=== PATIENT | female | born 1995 | race Hispanic/Latino ===

== ENCOUNTER 2020-07-14 08:19 | Emergency (ER) | payer OTHER, SELFPAY ==
[2020-07-14] MEDS ORDERED: MAGNES/ALUMIN/SIMET 30ML UCUP ONE (08:54)
[2020-07-14] MEDS ORDERED: LIDOCAINE VISCOUS 2% SOLN 15 ML UDC ONE (08:55)
[2020-07-14 10:27] LABS: Absolute Lymphocytes (CBC) 2.4 K/uL (0.7-4.9); Basophils % 0.4 % (0-1.3); Lymphocytes % 22.6 % (15.3-44.8); MPV 8.9 fL (7.6-11.3); RBC Red Blood Cell Count 4.18 M/uL (3.86-4.86)
[2020-07-14 10:37] LABS: Bilirubin Total 0.5 mg/dL (0.2-1.0); Protein, Total 8.1 g/dL (6.4-8.2)
--- NOTE | 2020-07-14 11:00 | RAD REPORT ---
EXAM DESCRIPTION: CT - Abdomen Pelvis W Contrast - 07/14/2020 10:39 am CLINICAL HISTORY: Abdominal pain COMPARISON: none. TECHNIQUE: Computed axial tomography of the abdomen pelvis was obtained. 100 cc Isovue-300 was admin istered intravenously. Oral contrast was not requested which limits evaluation of bowel. All CT scans are performed using dose optimization technique as appropriate and may include automated exposure control or mA/KV adjustment according to patient size. FINDINGS: Small right pleural effusion. Fatty liver. Liver is mildly enlarged. The spleen, adrenals and kidneys appear unremarkable. The pancreas is normal size. The density is normal. Mild stranding adjacent to the pancreas. There is no evidence of diverticulitis. An IUD is present within the uterus. IMPRESSION: Hepatomegaly with fatty infiltration Mild stranding within the peripancreatic fat may represent mild pancreatitis
[2020-07-14] MEDS ORDERED: METOCLOPRAMIDE 10 MG/2mL INJ ONE (11:14)
[2020-07-14] MEDS ORDERED: DIPHENHYDRAMINE 50 MG/ML VIAL ONE (11:14)
--- NOTE | 2020-07-14 12:24 | EDPHYS ---
Physician Documentation [facility] Name: Andreina Gomez Age: 24 yrs Sex: Female : 1995 Arrival Date: 07/14/2020 Time: 08:26 Bed 5 Private MD: ED Physician Darrick Villafana HPI: 07/14 08:35 This 24 yrs old Female presents to ER via Unassigned with complaints of Chest ps1 Pain, Headache. 08:35 patient states that she does not have chest pain but epigastric pain as if she drank ps1 too much water and it was going to come up. Not nauseated but just feels full. No fever, chills, cough, or urinary symptoms. Sounds like indigestion. . 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 - Social history:: Smoking status: Patient denies any tobacco usage or history of. ROS: 08:37 Constitutional: Negative for fever, chills, and weight loss, Eyes: Negative for injury, ps1 pain, redness, and discharge, Cardiovascular: Negative for chest pain, palpitations, and edema, Respiratory: Negative for shortness of breath, cough, wheezing, and pleuritic chest pain, MS/Extremity: Negative for injury and deformity, Skin: Negative for injury, rash, and discoloration, Neuro: Negative for headache, weakness, numbness, tingling, and seizure. 08:37 Abdomen/GI: Positive for abdominal pain. Exam: 08:37 Constitutional: This is a well developed, well nourished patient who is awake, alert, ps1 and in no acute distress. Head/Face: Normocephalic, atraumatic. Eyes: Pupils equal round and reactive to light, extra-ocular motions intact. Lids and lashes normal. Conjunctiva and sclera are non-icteric and not injected. Cardiovascular: Regular rate and rhythm. No gallops, murmurs, or rubs. Normal PMI, no JVD. No pulse deficits. Respiratory: Lungs have equal breath sounds bilaterally, clear to auscultation and percussion. No rales, rhonchi or wheezes noted. No increased work of breathing, no retractions or nasal flaring. Abdomen/GI: Soft, non-tender, with normal bowel sounds. No distension or tympany. No guarding or rebound. No evidence of tenderness throughout. Skin: Warm, dry with normal turgor. Normal color with no rashes, no lesions, and no evidence of cellulitis. MS/ Extremity: Pulses equal, no cyanosis. Neurovascular intact. Full, normal range of motion. Neuro: Awake and alert, GCS 15, oriented to person, place, time, and situation. Cranial nerves II-XII grossly intact. Sensory grossly intact. Vital Signs: 08:35 BP 161 / 101; Pulse 78; Resp 18; Temp 98.8(O); Pulse Ox 99% on R/A; vg1 08:39 Weight 192.78 kg; Height 5 ft. 5 in. (165.10 cm); Pain 8/10; iw 10:50 BP 150 / 85; Pulse 65; Resp 18; Pulse Ox 99% on R/A; vg1 12:00 BP 146 / 81; Pulse 72; Resp 16; Pulse Ox 99% on R/A; vg1 08:39 Body Mass Index 70.72 (192.78 kg, 165.10 cm) iw MDM: 08:38 Patient medically screened. ps1 07/14 09:16 Order name: Influenza Screen (a \T\ B); Complete Time: 10:39 ps1 07/14 09:16 Order name: CBC with Diff; Complete Time: 10:32 ps1 07/14 09:16 Order name: CMP; Complete Time: 10:39 ps1 07/14 09:16 Order name: Lipase; Complete Time: 10:39 ps1 07/14 09:16 Order name: CT Abd/Pelvis - IV Contrast Only; Complete Time: 11:03 ps1 07/14 11:39 Order name: CREATININE WHOLE BLOOD; Complete Time: 12:13 EDMS Administered Medications: 08:46 Drug: GI Cocktail without - (Maalox Suspension 30 ml, Lidocaine Liquid 2 % 15 vg1 ml) Route: PO; 09:17 Follow up: Response: Pain is unchanged, physician notified vg1 11:12 Drug: Benadryl 50 mg Route: IVP; Site: right antecubital; vg1 12:18 Follow up: Response: No adverse reaction vg1 11:14 Drug: Reglan 10 mg Route: IVP; Site: right antecubital; vg1 12:18 Follow up: Response: Pain is decreased vg1 Disposition: 07/14/20 12:24 Discharged to Home. Impression: Epigastric pain, Headache. - Condition is Stable. - Discharge Instructions: Abdominal Pain, Adult, Migraine Headache. - Prescriptions for Bentyl 10 mg Oral Capsule - take 1 capsule by ORAL route every 6 hours As needed; 40 capsule. Carafate 1 gram Oral Tablet - take 1 tablet by ORAL route 4 times per day take on an empty stomach, beginning on waking and last dose at bedtime; 100 tablet. Zofran 4 mg Oral Tablet - take 1 tablet by ORAL route every 12 hours As needed; 20 tablet. - Medication Reconciliation Form, Thank You Letter, Antibiotic Education, Prescription Opioid Use form. - Follow up: Private Physician; When: As needed; Reason: Further diagnostic work-up. Follow up: Emergency Department; When: As needed; Reason: Fever > 102 F, Worsening of condition. - Problem is new. - Symptoms are unchanged. Signatures: Dispatcher [employer] EDYen Odell RN RN Darrick Villafana MD MD ps1 Claudia Villa RN RN vg1 Corrections: (The following items were deleted from the chart) 08:41 08:40 PMHx: None; [facility] 13:00 12:24 07/14/2020 12:24 Discharged to Home. Impression: Epigastric pain; Headache. vg1 Condition is Stable. Forms are Medication Reconciliation Form, Thank You Letter, Antibiotic Education, Prescription Opioid Use. Follow up: Private Physician; When: As needed; Reason: Further diagnostic work-up. Follow up: Emergency Department; When: As needed; Reason: Fever > 102 F, Worsening of condition. Problem is new. Symptoms are unchanged. ps1
--- NOTE | 2020-07-14 12:24 | ER ---
Nurse's Notes [facility] Name: Andreina Gomez Age: 24 yrs Sex: Female : 1995 Arrival Date: 07/14/2020 Time: 08:26 Bed 5 Private MD: Diagnosis: Epigastric pain;Headache Presentation: 07/14 08:38 Chief complaint: Patient states: upper abd pain, bloating, headache since last night, iw pain makes her SOB. Coronavirus screen: At this time, the client does not indicate any symptoms associated with coronavirus-19. Ebola Screen: Patient negative for fever greater than or equal to 101.5 degrees Fahrenheit, and additional compatible Ebola Virus Disease symptoms Patient denies exposure to infectious person. Patient denies travel to an Ebola-affected area in the 21 days before illness onset. No symptoms or risks identified at this time. Onset of symptoms was July 13, 2020. 08:38 Method Of Arrival: Ambulatory iw 08:38 Acuity: ARVIND 3 iw 08:39 Initial Sepsis Screen: Does the patient meet any 2 criteria? No. Patient's initial iw sepsis screen is negative. Does the patient have a suspected source of infection? No. Patient's initial sepsis screen is negative. Risk Assessment: Do you want to hurt yourself or someone else? Patient reports no desire to harm self or others. Triage Assessment: 12:59 Pain: Also complains of. 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 - Social history:: Smoking status: Patient denies any tobacco usage or history of. Screenin:40 Abuse screen: Denies threats or abuse. Nutritional screening: No deficits noted. vg1 Tuberculosis screening: No symptoms or risk factors identified. Fall Risk No fall in past 12 months (0 pts). No secondary diagnosis (0 pts). No IV (0 pts). Ambulatory Aid- None/Bed Rest/Nurse Assist (0 pts). Gait- Normal/Bed Rest/Wheelchair (0 pts) Mental Status- Oriented to own ability (0 pts). Total Saavedra Fall Scale indicates No Risk (0-24 pts). Assessment: 08:40 General: Appears in no apparent distress. comfortable, Behavior is calm, cooperative. vg1 General: Appears obese. Pain: Complains of pain in epigastric area Pain does not radiate. Pain currently is 8 out of 10 on a pain scale. Pain began 1 day ago. Neuro: Level of Consciousness is awake, alert, obeys commands, confused. Cardiovascular: Patient's skin is warm and dry. Respiratory: Airway is patent Respiratory effort is even, unlabored, Respiratory pattern is regular, symmetrical. GI: Bowel sounds present X 4 quads. Abd is soft and non tender Reports Patient currently denies diarrhea, nausea, vomiting, last BM was yesterday 07/13/20, and was green and soft. : No signs and/or symptoms were reported regarding the genitourinary system. EENT: No signs and/or symptoms were reported regarding the EENT system. Derm: Skin is pink, warm \T\ dry. Musculoskeletal: Range of motion: intact in all extremities. 08:54 Reassessment: Patient up for d/c, pending lab results. vg1 09:17 Reassessment: Patient reports pain is still the same. Stated when laying down 'the pain vg1 is not so bad, until I sit up'. 10:20 Reassessment: Patient appears in no apparent distress at this time. No changes from vg1 previously documented assessment. Patient and/or family updated on plan of care and expected duration. Pain level reassessed. Patient is alert, oriented x 3, equal unlabored respirations, skin warm/dry/pink. 10:54 Reassessment: Patient reports h/a, provider notified. Rates pain 9/10. States that abd vg1 pain is now 5/10. 12:00 Reassessment: Patient appears in no apparent distress at this time. Patient and/or vg1 family updated on plan of care and expected duration. Pain level reassessed. Patient is alert, oriented x 3, equal unlabored respirations, skin warm/dry/pink. Vital Signs: 08:35 BP 161 / 101; Pulse 78; Resp 18; Temp 98.8(O); Pulse Ox 99% on R/A; vg1 08:39 Weight 192.78 kg; Height 5 ft. 5 in. (165.10 cm); Pain 8/10; iw 10:50 BP 150 / 85; Pulse 65; Resp 18; Pulse Ox 99% on R/A; vg1 12:00 BP 146 / 81; Pulse 72; Resp 16; Pulse Ox 99% on R/A; vg1 08:39 Body Mass Index 70.72 (192.78 kg, 165.10 cm) iw ED Course: 08:26 Patient arrived in ED. as 08:30 Darrick Villafana MD is Attending Physician. ps1 08:32 Claudia Villa, RN is Primary Nurse. vg1 08:39 Triage completed. iw 08:40 Patient has correct armband on for positive identification. Bed in low position. Call vg1 light in reach. Side rails up X 1. Pulse ox on. NIBP on. 08:55 Patient maintains SpO2 saturation greater than 95% on room air. vg1 09:43 CT Abd/Pelvis - IV Contrast Only In Process Unspecified. EDMS 09:45 Missed attempt(s): 22 gauge in right forearm. done by Claudia SAINI. Bleeding controlled, sv band aid applied, catheter tip intact. 09:54 Influenza Screen (a \T\ B) Sent. vg1 10:00 Missed attempt(s): 20 gauge in left antecubital area. Bleeding controlled, band aid sv applied, catheter tip intact. 10:10 Missed attempt(s): 20 gauge in right antecubital area. done by Dr Villafana . sv 10:15 Missed attempt(s): 20 gauge in right antecubital area. done by Dr Villafana. sv 10:25 Missed attempt(s): 18 gauge in right antecubital area. done by Dr Villafana. sv 10:30 Accessed peripheral vein via ultrasound, utilizing dynamic ultrasound technique using sv 18G Nexia IV Catheter per hospital protocol. Clean \T\ dry. Dressing intact. Good blood return. Flushes easily. R AC. 10:[address] via stretcher. vg1 10:44 Patient moved back from DC. vg1 12:52 ED physician to see patient. vg1 12:59 IV discontinued, intact, bleeding controlled, No redness/swelling at site. Pressure vg1 dressing applied. 12:59 No provider procedures requiring assistance completed. vg1 Administered Medications: 08:46 Drug: GI Cocktail without - (Maalox Suspension 30 ml, Lidocaine Liquid 2 % 15 vg1 ml) Route: PO; 09:17 Follow up: Response: Pain is unchanged, physician notified vg1 11:12 Drug: Benadryl 50 mg Route: IVP; Site: right antecubital; vg1 12:18 Follow up: Response: No adverse reaction vg1 11:14 Drug: Reglan 10 mg Route: IVP; Site: right antecubital; vg1 12:18 Follow up: Response: Pain is decreased vg1 Outcome: 12:24 Discharge ordered by . ps1 12:59 Discharged to home ambulatory. vg1 12:59 Condition: good 12:59 Discharge instructions given to patient, Instructed on discharge instructions, follow up and referral plans. medication usage, Demonstrated understanding of instructions, follow-up care, medications, Prescriptions given X 3. 13:00 Patient left the ED. vg1 Signatures: Dispatcher [employer] EDMS Yi Ramires RN RN sv Martinez, Amelia as Williams, Irene, RN RN iw Darrick Villafana MD MD ps1 Garcia, Victoria, RN RN vg1 Corrections: (The following items were deleted from the chart) 08:41 08:40 PMHx: None; dani
[2020-07-17 08:23] VITALS: TEMP 98.8; O2SAT 99
[2020-07-17 08:26] VITALS: BP 146/81
== END 2020-07-14 13:00 | disposition home or self-care (01) ==
LOC: ER 08:19
DX: R51.9 Headache, unspecified (principal)
CPT/HCPCS: 36415; 74177; 80053; 82565; 83690; 85025; 87804; 96374; 96375; 99285; J1200; J2765; Q9967

== ENCOUNTER 2020-07-19 15:25 | Emergency (ER) | payer OTHER, SELFPAY ==
--- OUTSIDE RECORDS SUMMARY | 2020-07-19 15:28 | XMS REPORT | Summary of Care ---
:1995 Author Organization [facility] Address [address] [place] [address] Care Team Providers Name Role Phone Kelli Dixon [facility] Primary Care Provider Reason for Visit Reason Comments Abnormal Lab Encounter Details Date Type Department Care Team Description [facility] [address] [facility] [place] [address] [phone] [place], [place] [address] [phone] Allergies No Known Allergiesdocumented as of this encounter (statuses as of 06/05/2020) Medications Medication Sig Dispensed Refills Start Date End Date Status PARoxetine (PAXIL) 10 Take 10 mg by 0 Active mg tablet mouth daily. documented as of this encounter (statuses as of 06/05/2020) Active Problems Problem Noted Date Well woman exam 06/03/2020 Other general counseling and advice for contraceptive management 06/03/2020 Morbid obesity 06/03/2020 Other depression 06/03/2020 IUD (intrauterine device) in place 06/03/2020 documented as of this encounter (statuses as of 06/05/2020) Social History Tobacco Use Types Packs/Day Years Used Date Never Smoker Smokeless Tobacco: Never Used Alcohol Use Drinks/Week oz/Week Comments Not Currently Sex Assigned at Date Recorded Not on file COVID-19 Exposure Response Date Recorded In the last month, have you been in contact with No / Unsure 06/03/2020 1:00 PM CARDIAC EXERCISE PHYSIOLOGIST someone who was confirmed or suspected to have Coronavirus / COVID-19? documented as of this encounter Last Filed Vital Signs Not on filedocumented in this encounter Miscellaneous Notes Telephone Encounter - Anne-Marie George LVN - 06/05/2020 10:59 AM CSTAndreina Gomez is a 24 year old female Patient informed of results and recommendations, verbalized understanding. IAC EXERCISE PHYSIOLOGIST Telephone Encounter - Kelli Dixon [facility]NP - 06/04/2020 11:44 AM CARDIAC EXERCISE PHYSIOLOGIST Please notify the patient her A1c is elevated. She is considered diabetic, please advise her on seeking PCP for continued mgmt. Please advise her on heart health diet, weight loss management SANDRA Reynolds 06/04/2020 11:45 AM IAC EXERCISE PHYSIOLOGIST documented in this encounter Plan of Treatment Date Type Specialty Care Team Description 06/12/2020 Office Visit OB Satellites Becca Dixon [facility]NP [address] [phone] Health Maintenance Due Date Last Done Comments HPV VACCINES (1 - 2-dose series) 08/03/2020 Postponed from 2004 (Alternative Roland delines) INFLUENZA VACCINE (#1) 2021 Postponed from 04/01/2020 (Refused) DTaP,Tdap,and Td Vaccines (1 - 06/03/2021 P ostponed from 2012 Tdap) (Alternative Roland delines) Depression Screening 06/03/2021 06/03/2020 VARICELLA VACCINES (1 of 2 - 06/03/2021 Pos tponed from 1994 2-dose childhood series) (Altern ative Guidelines) PAP SMEAR 06/03/2023 06/03/2020 PNEUMOCOCCAL 0-64 YEARS COMBINED Aged Out No longer eligible based on SERIES patient's age to complete this topic documented as of this encounter Results Not on filedocumented in this encounter Insurance Payer Benefit Plan Subscriber ID Effective Phone Address Typ e / Group Dates [facility] [id number] 2020-Pres [phone] Medicaid WOMEN ent [address] [place] [address] documented as of this encounter
--- OUTSIDE RECORDS SUMMARY | 2020-07-19 15:28 | XMS REPORT | Summary of Care ---
:1995 Author Organization [facility] Address [address] [place] [address] Care Team Providers Name Role Phone Kelli Dixon [facility] Primary Care Provider [phone] Reason for Visit Reason Comments Abnormal Lab Encounter Details Date Type Department Care Team Description 06/04/[address] [facility] [address] [facility] [place] [address] [phone] [place], [place] [address] [phone] Allergies No Known Allergiesdocumented as of this encounter (statuses as of 06/04/2020) Medications Medication Sig Dispensed Refills Start Date End Date Status PARoxetine (PAXIL) 10 Take 10 mg by 0 Active mg tablet mouth daily. documented as of this encounter (statuses as of 06/04/2020) Active Problems Problem Noted Date Well woman exam 06/03/2020 Other general counseling and advice for contraceptive management 06/03/2020 Morbid obesity 06/03/2020 Other depression 06/03/2020 IUD (intrauterine device) in place 06/03/2020 documented as of this encounter (statuses as of 06/04/2020) Social History Tobacco Use Types Packs/Day Years Used Date Never Smoker Smokeless Tobacco: Never Used Alcohol Use Drinks/Week oz/Week Comments Not Currently Sex Assigned at Date Recorded Not on file COVID-19 Exposure Response Date Recorded In the last month, have you been in contact with No / Unsure 06/03/2020 1:00 PM METEOROLOGIST LIAISON someone who was confirmed or suspected to have Coronavirus / COVID-19? documented as of this encounter Last Filed Vital Signs Not on filedocumented in this encounter Miscellaneous Notes Telephone Encounter - Kelli Dixon [facility] - 06/04/2020 11:44 AM METEOROLOGIST LIAISON Please notify the patient her A1c is elevated. She is considered diabetic, please advise her on seeking PCP for continued mgmt. Please advise her on heart health diet, weight loss management SANDRA Reynolds 06/04/2020 11:45 AM OROLOGIST LIAISON documented in this encounter Plan of Treatment Date Type Specialty Care Team Description 06/12/2020 Office Visit OB Satellites Becca Dixon [facility] [address] [place], [place] [address] [phone] Health Maintenance Due Date Last Done Comments [...] Address Typ e / Group Dates [facility] [id number] 2020-Pres [phone] Medicaid WOMEN ent [address] [place] [address] documented as of this encounter
--- OUTSIDE RECORDS SUMMARY | 2020-07-19 15:28 | XMS REPORT | Summary of Care ---
:1995 Author Organization [facility] Address [address] [place] [address] Care Team Providers Name Role Phone Kelli Dixon MANUEL Primary Care Provider [phone] Reason for Visit Reason Comments Well Woman Exam Encounter Details Date Type Department Care Team Description 06/03/2020 Office Visit [facility]- Kleli Dixon Ot er general counseling and advice for contraceptive management (Primary Dx); SANDRA Greene IUD (intrauterine device) in place; [address] [facility] [address] Well woman exam; Street MARTHA A Vaginal discharge; [place], [place] [address] Morbid obesity; [address] Other depression; [phone] Family hi story of diabetes mellitus; Other iron defi ciency anemia; Screen for STD (sexually transmitted disease) Allergies No Known Allergiesdocumented as of this encounter (statuses as of 06/03/2020) Medications Medication Sig Dispensed Refills Start Date End Date Status PARoxetine (PAXIL) 10 Take 10 mg by 0 Active mg tablet mouth daily. documented as of this encounter (statuses as of 06/03/2020) Active Problems Problem Noted Date Well woman exam 06/03/2020 Other general counseling and advice for contraceptive management 06/03/2020 Morbid obesity 06/03/2020 Other depression 06/03/2020 IUD (intrauterine device) in place 06/03/2020 documented as of this encounter (statuses as of 06/03/2020) Social History Tobacco Use Types Packs/Day Years Used Date Never Smoker Smokeless Tobacco: Never Used Alcohol Use Drinks/Week oz/Week Comments Not Currently Sex Assigned at Date Recorded Not on file COVID-19 Exposure Response Date Recorded In the last month, have you been in contact with No / Unsure 06/03/2020 1:00 PM SEVERITY OF ILLNESS COORDINATOR someone who was confirmed or suspected to have Coronavirus / COVID-19? documented as of this encounter Last Filed Vital Signs Vital Sign Reading Time Taken Comments Blood Pressure 117/80 06/03/2020 1:00 PM SEVERITY OF ILLNESS COORDINATOR Pulse 89 06/03/2020 1:00 PM SEVERITY OF ILLNESS COORDINATOR Temperature 36.2 C (97.1 F) 06/03/2020 1:00 PM SEVERITY OF ILLNESS COORDINATOR Respiratory Rate 16 06/03/2020 1:00 PM SEVERITY OF ILLNESS COORDINATOR Oxygen Saturation - - Inhaled Oxygen Concentration - - Weight 195.2 kg (430 lb 4.8 oz) 06/03/2020 1:00 PM SEVERITY OF ILLNESS COORDINATOR Height 165.1 cm (5' 5") 06/03/2020 1:00 PM SEVERITY OF ILLNESS COORDINATOR Body Mass Index 71.61 06/03/2020 1:00 PM SEVERITY OF ILLNESS COORDINATOR documented in this encounter Progress Notes Kelli Dixon, WHCNP - 06/03/2020 12:45 PM CST Chief complaint: Chief Complaint Patient presents with Well Woman Exam HPI: the patient is here today for WWE and contraceptive mangaement. She reports she is doing well for the most part but does however report vaginal discharge with odor, and irregular menses for the past 1 year. She denies using anything otc, and declines any new sexual partners. She does however agree to STI testing today. She reports IUD in place for control and reports it has been in place for the past 8 years. She reports she desires removal and placement of a different device,one with hormones to possible help regulate her menses a little better. She also reports history of depression and reports that she is currently on meds that was prescribed to her while she was still in [place]. She reports that she feels as though the meds are not effective but denies symptoms of harming herself and others. Pt (denies) current or past physical, sexual or emotional abuse. Histories OB History Para Term AB Living 1 1 1 1 SAB TAB Ectopic Multiple Live Births 1 # Outcome Date GA Lbr Beny/2nd Weight Sex Delivery Anes PTL Lv 1 Term 07/22/12 [id number] 7 lb 14 oz (3.572 kg) F CS-Unspec KACI Past Medical History: Diagnosis Date Anemia 2013 not on meds Anxiety 2019 Pt on paxil Asthma 2010 no recent asthma attacks per pt report Depression 2019 pt on paxil Sleep apnea 2019 pt has sleep apnea machine Family History Problem Relation Age of Onset Depression Mother Diabetes Mother Hypertension Mother High cholesterol Mother Depression Father Diabetes Father High cholesterol Father Hypertension Father Family Status Relation Name Status Mo Alive Fa Alive Past Surgical History: Procedure Laterality Date SECTION 2011 x1 Social History Socioeconomic History Marital status: Single Spouse name: Not on file Number of children: Not on file Years of education: Not on file Highest education level: Not on file Occupational History Not on file Social Needs Financial resource strain: Not on file Food insecurity Worry: Not on file Inability: Not on file Transportation needs Medical: Not on file Non-medical: Not on file Tobacco Use Smoking status: Never Smoker Smokeless tobacco: Never Used Substance and Sexual Activity Alcohol use: Not Currently Drug use: Not Currently Sexual activity: Yes Partners: Male control/protection: I.U.D. Comment: last intercourse: 05/23/2020 Lifestyle Physical activity Days per week: Not on file Minutes per session: Not on file Stress: Not on file Relationships Social connections Talks on phone: Not on file Gets together: Not on file Attends mosque service: Not on file Active member of club or organization: Not on file Attends meetings of clubs or organizations: Not on file Relationship status: Not on file Intimate partner violence Fear of current or ex partner: Not on file Emotionally abused: Not on file Physically abused: Not on file Forced sexual activity: Not on file Other Topics Concern Not on file Social History Narrative Patient feels safe at home. Social History Substance and Sexual Activity Sexual Activity Yes Partners: Male control/protection: I.U.D. Comment: last intercourse: 05/23/2020 Labs Labs are pending. Radiology No new radiology. Allergies Andreina has No Known Allergies. Medications Andreina has a current medication list which includes the following prescription(s): paroxetine. Review of Systems Constitutional: Negative. HENT: Negative. Eyes: Negative. Respiratory: Negative. Breasts: Negative. Cardiovascular: Negative. Gastrointestinal: Negative. Genitourinary: Positive for vaginal discharge and menstrual problem. Musculoskeletal: Negative. Skin: Negative. Neurological: Negative. Psychiatric/Behavioral: Negative. Endocrine: Endocrine negative BP 117/80 (BP Location: Right arm, Patient Position: Sitting, BP CUFF SIZE: Thigh cuff) | Pulse 89| Temp 36.2 C (97.1 F) (Oral) | Resp 16 | Ht 5' 5" (1.651 m) | Wt 430 lb 4.8 oz (195.2 kg) |LMP 05/24/2020 (Approximate) | BMI 71.61 kg/m Pregravid BMI: Could not be calculated Physical Exam Vitals reviewed. Constitutional: She is oriented to person, place, and time. She appears well- developed and well-nourished. Her body habitus is normal. Neck: No tenderness and no mass. No thyroid nodules and no thyromegaly palpated. No neck adenopathy. Cardiovascular: Regular rate and rhythm. No gallop, no friction rub and no murmur auscultated. No peripheral edema present. Pulmonary/Chest: Breath sounds clear to auscultation. Normal inspiratory effort. Abdominal: Abdomen is soft. No mass palpated. No tenderness present. There is no hepatosplenomegaly,splenomegaly or hepatomegaly. There is no rigidity. No hernia palpated or inspected. Neuro/Psychiatric: She has a normal mood and affect. She is oriented to person, place, and time. Skin: No lesion, no rash and no ulceration present. Lymphadenopathy: No neck adenopathy present. No axillary adenopathy present. No inguinal adenopathy present. Breast: Right breast exhibits no mass, no nipple discharge and no tenderness. Left breast exhibits no mass, no nipple discharge and no tenderness. Breasts are symmetrical. Normal left breast and normalright breast Rectal: Rectal exam with normal anal tone. No mass, no external hemorrhoid and no internal hemorrhoid palpated or inspected. External genitalia: Normal external genitalia appropriate for age. Normal hair distribution. No labial lesion. Urethral meatus: Normal urethral meatus size, location and no lesion. No prolapse present. Normal urethral meatus Urethra: Normal urethra. No urethral tenderness, no mass and no urethral scarring palpated. Bladder: Bladder has no fullness, no mass palpated and no tenderness. Normal bladder Vagina:No lesion inspected. Normal estrogen effect. Normal support. Vaginal discharge found. No lesions in the vagina. Scant discharge noted, scant blood noted Cervix: Normal cervix. No lesion. No tenderness and no discharge present. Uterus: Uterus is normal size, normal contour, normal position and non-tender. Normal uterus Adnexa: Right adnexa without tenderness, ovary enlargement or mass. Left adnexa without tenderness, ovary enlargement or mass. Normal left adnexa and normal right adnexa Anus/perineum: Normal perineum and normal anus. Assessment/Plan Return to clinic in 1 weeks. for IUD removal and insertion Return to clinic in 1 year for WWE or sooner as needed Rubella/VZV: luca dept BMI: 71 Td: pending Pap Smear: today Gardasil: pending Mammogram/Guaiac/Colonoscopy :na Other general counseling and advice for contraceptive management (primary encounter diagnosis) IUD (intrauterine device) in place Comment: reports in place, unable to visualize iud strings on todays visit Plan: return in 1 week Well woman exam Comment: routine Plan: PAP Smear-Liquid Based, PAP Smear-Liquid Based Vaginal discharge Comment: reports Plan: GC & CHLAMYDIA AMPLIFIED ASSAY, TRICHOMONAS AMPLIFIED ASSAY, GALV ONLY - VAGINAL PATHOGENS BY NUCLEIC ACID TESTING, GC & CHLAMYDIA AMPLIFIED ASSAY, TRICHOMONAS AMPLIFIED ASSAY Morbid obesity Comment: see bmui Plan: BMI discussed, appropriate weight gain, sensible diet, and exercise, increased fiber and waterintake and protein low in fat. Encouraged exercise for 30 min everyday; begin regimen with caution to prevent injury. Encouraged to decrease BMI to <25. Educated on how obesity and smoking can affect future and health. Educated on the effects of chronic health problems, tobacco use, and mental health on future pregnancies and/or skilled nursing health. Other depression Comment: reports on meds Plan: resource list provided Depression screen positive. -Follow up with provider scheduled provided with resource list Family history of diabetes mellitus Comment: reports desires labs Plan: GLYCOSYLATED HEMOGLOBIN (A1C), LIPID PANEL (45168)(TOTAL CHOLESTEROL, TRIGLYCERIDES, HDL), GLYCOSYLATED HEMOGLOBIN (A1C), LIPID PANEL (55776)(TOTAL CHOLESTEROL, TRIGLYCERIDES, HDL) Other iron deficiency anemia Comment: reports states she takes iron when she remembers Plan: CBC WITH DIFF Screen for STD (sexually transmitted disease) Comment: as ordered Plan: HIV 1/2 AG-AB WITH REFLEX This visit did not involve counseling and coordination that comprised more than 50% of the visit time. SANDRA Reynolds 06/03/2020 2:33 PM RITY OF ILLNESS COORDINATOR Brenton Liu, PARVEEN - 06/03/2020 12:45 PM CST24 year old presents to the clinic for wwe. 1) Previous BCM: IUD paragard 2) Desired BCM: Satisfied with paragard 3) LMP: 05/24/2020 4) Last [place]: 05/23/2020 5) Last Pap: 2016 in [place] Results: negative 6) Tdap: N/A 7) Gardasil: N/A 8) C/O: Patient having frequent urination, foul smelling vaginal discharge, and heavy menses. 9) Patient denies history of physical, emotional, or sexual abuse. Patient states that she currently feels safe at home. BRENTON LIU RN 06/03/2020 1:14 PM RITY OF ILLNESS COORDINATOR documented in this encounter Plan of Treatment Date Type Specialty Care Team Description 06/12/2020 Office Visit [facility] Becca Dixon WHCNP [address] [place], [place] [address] [phone] Name Type Priority Associated Diagnoses Date/Ti me PAP Smear-Liquid Based LAB Routine Well woman exam 2:55 PM SEVERITY OF ILLNESS COORDINATOR GC & CHLAMYDIA AMPLIFIED LAB Routine Vaginal discharg e 06/03/2020 2:55 PM ASSAY SEVERITY OF ILLNESS COORDINATOR TRICHOMONAS AMPLIFIED LAB Routine Vaginal discharge 1 08/03/2019 2:55 PM ASSAY SEVERITY OF ILLNESS COORDINATOR GALV ONLY - VAGINAL LAB Routine Vaginal discharge 09/2019 2:54 PM PATHOGENS BY NUCLEIC ACID CS T TESTING GLYCOSYLATED HEMOGLOBIN LAB Routine Family history of 06/03/2020 2:54 PM (A1C) diabetes mellitus SEVERITY OF ILLNESS COORDINATOR CBC WITH DIFF LAB Routine Other iron deficiency 06/03 2:54 PM anemia SEVERITY OF ILLNESS COORDINATOR HIV 1/2 AG-AB WITH REFLEX LAB Routine Screen for STD (sexually 06/03/2020 2:54 PM transmitted disease) SEVERITY OF ILLNESS COORDINATOR Name Type Priority Associated Diagnoses Order S chedule PAP Smear-Liquid Based LAB Routine Well woman exam Ex pected: 06/03/2020, Expires: 2020 GC & CHLAMYDIA AMPLIFIED LAB Routine Vaginal discharg e Expected: 06/03/2020, ASSAY Expires: 2020 TRICHOMONAS AMPLIFIED LAB Routine Vaginal discharge E xpected: 06/03/2020, ASSAY Expires: 2020 GLYCOSYLATED HEMOGLOBIN LAB Routine Family history of Expected: 06/03/2020, (A1C) diabetes mellitus Expires: 08/03/2020 LIPID PANEL (22001)(TOTAL LAB Routine Family history of Expected: 06/10/2020, CHOLESTEROL, diabetes mellitus Expires: 1 08/03/2020 TRIGLYCERIDES, HDL) Health Maintenance Due Date Last Done Comments [...] Results Not on filedocumented in this encounter Visit Diagnoses Diagnosis Other general counseling and advice for contraceptive management - Primary IUD (intrauterine device) in place Presence of intrauterine contraceptive d evice Well woman exam Routine general medical examination at a health care facility Vaginal discharge Leukorrhea, not specified as infective Morbid obesity Other depression Family history of diabetes mellitus Other iron deficiency anemia Screen for STD (sexually transmitted dis ease) Screening examination for venereal disea se documented in this encounter Insurance Payer Benefit Plan Subscriber ID Effective Phone Address Typ e / Group Dates [facility] [id number] 2020-Pres [phone] Medicaid WOMEN ent [address] [place] [id number] 1 documented as of this encounter
--- OUTSIDE RECORDS SUMMARY | 2020-07-19 15:28 | XMS REPORT | Summary of Care ---
:1995 Author Organization [facility] Address [address] [place] [address] Care Team Providers Name Role Phone Kelli Dixon MANUEL Primary Care Provider [phone] Reason for Visit Reason Comments Well Woman Exam Encounter Details Date Type Department Care Team Description 06/03/2020 Office Visit [facility]- Kelli Dixon Ot er general counseling and advice for contraceptive management (Primary Dx); SANDRA Greene IUD (intrauterine device) in place; [address] [place] [address] [facility] [address] Well woman exam; Street MARTHA [address] Vaginal discharge; [place], [place] [address] Morbid obesity; [address] Other depression; [phone] Family hi story of diabetes mellitus; Other [...] with No / Unsure 06/03/2020 1:00 PM MORTGAGE LOAN FUNDER someone who was confirmed or suspected to have Coronavirus / COVID-19? documented as of this encounter Last Filed Vital Signs Vital Sign Reading Time Taken Comments Blood Pressure 117/80 06/03/2020 1:00 PM MORTGAGE LOAN FUNDER Pulse 89 06/03/2020 1:00 PM MORTGAGE LOAN FUNDER Temperature 36.2 C (97.1 F) 06/03/2020 1:00 PM MORTGAGE LOAN FUNDER Respiratory Rate 16 06/03/2020 1:00 PM MORTGAGE LOAN FUNDER Oxygen Saturation - - Inhaled Oxygen Concentration - - Weight 195.2 kg (430 lb 4.8 oz) 06/03/2020 1:00 PM MORTGAGE LOAN FUNDER Height 165.1 cm (5' 5") 06/03/2020 1:00 PM MORTGAGE LOAN FUNDER Body Mass Index 71.61 06/03/2020 1:00 PM MORTGAGE LOAN FUNDER documented in this encounter Progress Notes Kelli [...] to her while she was still in [place]. She reports that she feels as though [...] file Gets together: Not on file Attends buddhist service: Not on file Active member of [...] and mental health on future pregnancies and/or prison health. Other depression Comment: reports on meds Plan: resource list provided Depression screen positive. -Follow up with provider scheduled provided with resource list Family history of diabetes mellitus Comment: reports desires labs Plan: GLYCOSYLATED HEMOGLOBIN (A1C), LIPID PANEL (60062)(TOTAL CHOLESTEROL, TRIGLYCERIDES, HDL), GLYCOSYLATED HEMOGLOBIN (A1C), LIPID PANEL (50640)(TOTAL CHOLESTEROL, TRIGLYCERIDES, HDL) Other iron deficiency anemia Comment: reports states she takes iron when she remembers Plan: CBC WITH DIFF Screen for STD (sexually transmitted disease) Comment: as ordered Plan: HIV 1/2 AG-AB WITH REFLEX This visit did not involve counseling and coordination that comprised more than 50% of the visit time. SANDRA Reynolds 06/03/2020 2:33 PM GAGE LOAN FUNDER Brenton Liu, PARVEEN - 06/03/2020 12:45 PM CST24 year old presents to the clinic for wwe. 1) Previous BCM: IUD paragard 2) Desired BCM: Satisfied with paragard 3) LMP: 05/24/2020 4) Last [place]: 05/23/2020 5) Last Pap: 2016 in [place] Results: negative 6) Tdap: N/A 7) Gardasil: N/A 8) C/O: Patient having frequent urination, foul smelling vaginal discharge, and heavy menses. 9) Patient denies history of physical, emotional, or sexual abuse. Patient states that she currently feels safe at home. BRENTON LIU RN 06/03/2020 1:14 PM GAGE LOAN FUNDER documented in this encounter Plan of Treatment Date Type Specialty Care Team Description 06/12/2020 Office Visit [facility] Becca Dixon WHCNP [address] [place], [place] [address] [phone] Name Type Priority Associated Diagnoses Date/Ti me PAP Smear-Liquid Based LAB Routine Well woman exam 2:55 PM MORTGAGE LOAN FUNDER GC & CHLAMYDIA AMPLIFIED LAB Routine Vaginal discharg e 06/03/2020 2:55 PM ASSAY MORTGAGE LOAN FUNDER TRICHOMONAS AMPLIFIED LAB Routine Vaginal discharge 1 08/03/2019 2:55 PM ASSAY MORTGAGE LOAN FUNDER GALV ONLY - VAGINAL LAB Routine Vaginal discharge 09/2019 2:54 PM PATHOGENS BY NUCLEIC ACID CS T TESTING GLYCOSYLATED HEMOGLOBIN LAB Routine Family history of 06/03/2020 2:54 PM (A1C) diabetes mellitus MORTGAGE LOAN FUNDER CBC WITH DIFF LAB Routine Other iron deficiency 06/03 2:54 PM anemia MORTGAGE LOAN FUNDER HIV 1/2 AG-AB WITH REFLEX LAB Routine Screen for STD (sexually 06/03/2020 2:54 PM transmitted disease) MORTGAGE LOAN FUNDER Name Type Priority Associated Diagnoses Order S chedule PAP Smear-Liquid Based LAB Routine Well woman exam Ex pected: 06/03/2020, Expires: 2020 GC & CHLAMYDIA AMPLIFIED LAB Routine Vaginal discharg e Expected: 06/03/2020, ASSAY Expires: 2020 TRICHOMONAS AMPLIFIED LAB Routine Vaginal discharge E xpected: 06/03/2020, ASSAY Expires: 2020 GLYCOSYLATED HEMOGLOBIN LAB Routine Family history of Expected: 06/03/2020, (A1C) diabetes mellitus Expires: 08/03/2020 LIPID PANEL (14890)(TOTAL LAB Routine Family history of Expected: 06/10/2020, [...] Address Typ e / Group Dates [facility] [id number] 2020-Pres [phone] [address] Medicaid WOMEN ent [address] [place] [id number] 1 documented as of this encounter
--- OUTSIDE RECORDS SUMMARY | 2020-07-19 15:28 | XMS REPORT | Continuity of Care Document ---
:1995 Author Organization [facility] t Address [address] [place] [address] Dr. Farrell. [address] [place] [address] Care Team Providers Name Role Phone Anayeli Anna Attending Clinician Problems This patient has no known problems. Allergies, Adverse Reactions, Alerts This patient has no known allergies or adverse reactions. Medications This patient has no known medications. Procedures This patient has no known procedures. Encounters Start End Encounter Admission Attending Care Care Encounter Source Date/Time Date/Time Type Type Clinicians Facility Department ID 2020-06-04 2020-06-[address] [facility] [id number] 00:00:00 00:00:00 Kelli Guadalupe REGISTERED NURSE SUPERVISOR [id number] [facility] [id number] MATERNAL [id number] & CHILD [address] [place] [address] Results This patient has no known results.
[2020-07-19] MEDS ORDERED: NA CHLORIDE 0.9% 1,000 ML ONE (16:00)
[2020-07-19] MEDS ORDERED: MORPHINE 4 MG/ML SYR ONE ×2 (16:00→17:19)
[2020-07-19] MEDS ORDERED: ONDANSETRON 4 MG/2 ML VIAL ONE (16:00)
[2020-07-19 16:14] LABS: Absolute Lymphocytes (CBC) 1.5 K/uL (0.7-4.9); Basophils % 0.5 % (0-1.3); Hematocrit 32.7 % (36.0-45.0); Lymphocytes % 13.5 % (15.3-44.8); MPV 8.7 fL (7.6-11.3); RBC Red Blood Cell Count 4.04 M/uL (3.86-4.86)
[2020-07-19 16:28] LABS: Bilirubin Direct 0.2 mg/dL (0-0.2); Bilirubin Total 0.4 mg/dL (0.2-1.0); Potassium 4.1 mmol/L (3.5-5.1); Protein, Total 7.9 g/dL (6.4-8.2)
[2020-07-19 17:53] LABS: Urine Blood 3+ (NEG); Urine Glucose NEGATIVE (NEG); Urine Protein NEGATIVE (NEG); Urine Specific Gravity 1.015 (1.005-1.030); Urine pH 6.5 (5.0-7.0)
--- NOTE | 2020-07-19 18:26 | RAD REPORT ---
EXAM DESCRIPTION: CT - Abdomen Pelvis W Contrast - 07/19/2020 5:52 pm CLINICAL HISTORY: ABD PAIN COMPARISON: Abdomen Pelvis W Contrast dated 07/14/2020 TECHNIQUE: Biphasic, helical CT imaging of the abdomen and pelvis was performed following 100 ml non -ionic IV contrast. No oral contrast. All CT scans are performed using dose optimization technique as appropriate and may include automated exposure control or mA/KV adjustment according to patient size. FINDINGS: Small bilateral pleural effusions are present. Minimal pericardial effusion present around a normal sized heart. Fatty infiltration pattern is seen throughout the enlarged liver. Liver measures 29 cm in craniocauda l dimension. No focal liver lesion identified. No splenomegaly or focal splenic finding. No pancreati c or peripancreatic acute process. Approximately 12 mm size density in the gallbladder near the cysti c duct is identified suspected to be gallstone. Additional stones can be occult. No wall thickening o r pericholecystic fluid seen. No biliary tree dilatation. Symmetric renal function is seen with no hydronephrosis or suspicious renal mass. No pyelonephritis o r acute parenchymal process. No bladder abnormalities. No adrenal abnormalities. No ovarian abnormality identified. Overall uterine contour has enlarged. In the fundal region there i s now a 5 centimeter diameter low-density mass effect not seen July 14. IUD is in place, shifted slightly in position since July 14. This is suspicious for hemorrhage possibly from IUD injury of myometrium. This low-density mass is centrally positioned within an enlarged fundal portion of the u terus. No fluid or blood in the pelvic floor. No dilated bowel loops or bowel wall thickening. No free air or pneumatosis. No hernia, mass or bul ky lymphadenopathy. No suspicious bony findings. IMPRESSION: Uterus has enlarged since July 14 with a 5 centimeter low-density mass significantly enlarging of the fundus. This is suspected to be a hematometrocolpos presentation possibly with hemo rrhage triggered by IUD injury to the myometrium. No gross evidence of myometrial perforation by the IUD which has shifted slightly since 2013. No exte nsion of blood or fluid in the peritoneal cavity. No acute or GI abnormality.
--- NOTE | 2020-07-19 18:43 | EDPHYS ---
Physician Documentation [facility] Name: Andreina Gomez Age: 24 yrs Sex: Female : 1995 Arrival Date: 07/19/2020 Time: 15:27 Bed 6 Private MD: ED Physician Vijay Johnston HPI: 07/19 17:19 This 24 yrs old Female presents to ER via Ambulatory with complaints of kb Abdominal Pain, Hurts When Breathing. 17:19 The patient presents with abdominal pain in the upper abdomen. Onset: The kb symptoms/episode began/occurred last week. The symptoms do not radiate. Associated signs and symptoms: Pertinent positives: nausea. The symptoms are described as constant. Modifying factors: The symptoms are alleviated by nothing, the symptoms are aggravated by nothing. Severity of pain: At its worst the pain was moderate in the emergency department the pain is unchanged. The patient has not experienced similar symptoms in the past. The patient has been recently seen at the [facility] Emergency Department, last week. Pt reports abd pain that started a week ago. States she was seen here and told that she was having some inflammation in her pancreas. Was told to stay on liquid diet and to return if symptoms worsened. Came in today because she is still having pain. . Historical: - Allergies: 15:38 No Known Allergies; sv - PMHx: 15:37 Sleep Apnea; sv - PSHx: 15:37 ; sv - Immunization history:: Adult Immunizations unknown. - Social history:: Smoking status: Patient denies any tobacco usage or history of. ROS: 17:17 Constitutional: Negative for fever, chills, and weight loss, Cardiovascular: Negative kb for chest pain, palpitations, and edema, Respiratory: Negative for shortness of breath, cough, wheezing, and pleuritic chest pain, Back: Negative for injury and pain, MS/Extremity: Negative for injury and deformity, Skin: Negative for injury, rash, and discoloration, Neuro: Negative for headache, weakness, numbness, tingling, and seizure. 17:17 Abdomen/GI: Positive for abdominal pain, nausea, Negative for vomiting, diarrhea. Exam: 17:17 Constitutional: This is a well developed, well nourished patient who is awake, alert, kb and in no acute distress. Chest/axilla: Normal chest wall appearance and motion. Nontender with no deformity. No lesions are appreciated. Cardiovascular: Regular rate and rhythm with a normal S1 and S2. No gallops, murmurs, or rubs. Normal PMI, no JVD. No pulse deficits. Respiratory: Lungs have equal breath sounds bilaterally, clear to auscultation and percussion. No rales, rhonchi or wheezes noted. No increased work of breathing, no retractions or nasal flaring. Skin: Warm, dry with normal turgor. Normal color with no rashes, no lesions, and no evidence of cellulitis. MS/ Extremity: Pulses equal, no cyanosis. Neurovascular intact. Full, normal range of motion. Neuro: Awake and alert, GCS 15, oriented to person, place, time, and situation. Cranial nerves II-XII grossly intact. Motor strength 5/5 in all extremities. Sensory grossly intact. Cerebellar exam normal. Normal gait. 17:17 Abdomen/GI: Inspection: obese Bowel sounds: normal, in all quadrants, Palpation: soft, in all quadrants, mild abdominal tenderness, in all quadrants. Vital Signs: 15:37 BP 158 / 100; Pulse 84; Resp 24; Temp 98.2; Pulse Ox 98% on R/A; Pain 10/10; ll1 16:10 BP 158 / 100; Pulse 82; Resp 22; Pulse Ox 97% on R/A; ph 18:26 BP 155 / 99; Pulse 73; Resp 18; Pulse Ox 95% on R/A; tw2 Procedures: 17:33 Peripheral line: by aseptic technique a peripheral line was placed in the left rn antecubital vein, Using u/s guidance, single stick, 20g IV. Good flush and return. . MDM: 15:30 Patient medically screened. kb 17:16 Data reviewed: vital signs, nurses notes. Data interpreted: Pulse oximetry: on room air kb is 97 %. Interpretation: normal. 18:40 Counseling: I had a detailed discussion with the patient and/or guardian regarding: the kb historical points, exam findings, and any diagnostic results supporting the discharge/admit diagnosis, lab results, radiology results, the need for outpatient follow up, a general surgeon, an OB/Gyne specialist, to return to the emergency department if symptoms worsen or persist or if there are any questions or concerns that arise at home. ED course: Pt reports she has had vaginal bleeding for a week. Went to [facility] to have IUD removed and the dr couldn't find it so they told her they were going to have to figure out the next step and get back to her. Pt educated to return there this week for continuity of care and follow up. 07/19 15:35 Order name: Basic Metabolic Panel; Complete Time: 16:30 kb 07/19 15:35 Order name: CBC with Diff; Complete Time: 16:18 kb 07/19 15:35 Order name: Hepatic Function; Complete Time: 16:30 kb 07/19 15:35 Order name: Lipase; Complete Time: 16:30 kb 07/19 17:30 Order name: Urine Dipstick--Ancillary (enter results); Complete Time: 17:58 eb 07/19 17:30 Order name: Urine --Ancillary (enter results); Complete Time: 17:58 eb 07/19 16:32 Order name: CT Abd/Pelvis - IV Contrast Only; Complete Time: 18:27 kb 07/19 15:35 Order name: IV Saline Lock; Complete Time: 16:08 kb 07/19 15:35 Order name: Labs collected and sent; Complete Time: 16:08 kb Administered Medications: 16:08 Drug: NS 0.9% 1000 ml Route: IV; Rate: 1000 ml; Site: right antecubital; ph 18:37 Follow up: Response: No adverse reaction; IV Status: IV infiltrated; IV Intake: 300ml ph 16:08 Drug: Zofran (Ondansetron) 4 mg Route: IVP; Site: right antecubital; ph 18:38 Follow up: Response: No adverse reaction ph 16:08 Drug: morphine 4 mg Route: IVP; Site: right antecubital; ph 18:38 Follow up: Response: No adverse reaction ph 17:10 Drug: morphine 4 mg Route: IVP; Site: right antecubital; ph 18:39 Follow up: Response: No adverse reaction ph 18:44 Not Given (Duplicate Order): TORadol 30 mg IVP once kb 18:45 Not Given (no IV access, provider notified, IM ordered): TORadol 60 mg IM once tw2 18:50 Drug: TORadol 60 mg Route: IM; Site: left deltoid; tw2 19:04 Follow up: Response: No adverse reaction; Pain is decreased tw2 Disposition: 07/20 07:32 Co-signature as Attending Physician, Vijay Johnston MD. rn Disposition: 07/19/20 18:42 Discharged to Home. Impression: Lower abdominal pain, unspecified. - Condition is Stable. - Discharge Instructions: Abdominal Pain, Adult, [id number]. - Prescriptions for Diclofenac Sodium 75 mg Oral Tablet, Delayed Release (E.C.) - take 1 tablet by ORAL route 2 times per day As needed; 30 tablet. - Medication Reconciliation Form, Thank You Letter, Antibiotic Education, Prescription Opioid Use form. - Follow up: Emergency Department; When: As needed; Reason: Worsening of condition. Follow up: Private Physician; When: 2 - 3 days; Reason: Recheck today's complaints, Continuance of care, Re-evaluation by your physician. Signatures: Dispatcher [employer] EDMS Flavia Terry, ELÍAS AVALOS-Yi Lilly RN RN sv Nieto, Roman, MD MD rn Hall, Patricia, RN RN [facility] Hospital[facility]ayla RN RN tw2 Corrections: (The following items were deleted from the chart) 07/19 17:17 17:17 Abdomen/GI: Positive for abdominal pain, Negative for nausea, vomiting, and kb diarrhea, kb 17:34 17:33 Peripheral line: by aseptic technique a peripheral line was placed in the left rn antecubital vein, rn 18:42 18:40 ED course: Pt reports she has had vaginal bleeding for a week. Went to [facility] kb to have IUD removed and the dr couldn't find it so they told her they were going to have to figure out the next step and get back to her. Pt educated to return there next week.. kb 19:05 18:42 07/19/2020 18:42 Discharged to Home. Impression: Lower abdominal pain, tw2 unspecified. Condition is Stable. Forms are Medication Reconciliation Form, Thank You Letter, Antibiotic Education, Prescription Opioid Use. Follow up: Emergency Department; When: As needed; Reason: Worsening of condition. Follow up: Private Physician; When: 2 - 3 days; Reason: Recheck today's complaints, Continuance of care, Re-evaluation by your physician. kb
--- NOTE | 2020-07-19 18:43 | ER ---
Nurse's Notes [facility] Name: Andreina Gomez Age: 24 yrs Sex: Female : 1995 Arrival Date: 07/19/2020 Time: 15:27 Bed 6 Private MD: Diagnosis: Lower abdominal pain, unspecified Presentation: 07/19 15:36 Chief complaint: Patient states: lower abd cramping and hurts to breathe in her upper sv chest area. Pt was seen here on Tuesday for the same symptoms but pt reports that the pain to her stomach is too much. Coronavirus screen: Client denies travel out of the [place] in the last 14 days. At this time, the client does not indicate any symptoms associated with coronavirus-19. Ebola Screen: No symptoms or risks identified at this time. Risk Assessment: Do you want to hurt yourself or someone else? Patient reports no desire to harm self or others. Onset of symptoms was July 14, 2020. 15:36 Method Of Arrival: Ambulatory sv 15:36 Acuity: ARVIND 3 sv 15:37 Initial Sepsis Screen: Does the patient meet any 2 criteria? RR > 20 per min. No. ll1 Patient's initial sepsis screen is negative. Does the patient have a suspected source of infection? Yes: Acute abdominal pain. Historical: - Allergies: 15:38 No Known Allergies; sv - PMHx: 15:37 Sleep Apnea; sv - PSHx: 15:37 ; sv - Immunization history:: Adult Immunizations unknown. - Social history:: Smoking status: Patient denies any tobacco usage or history of. Screenin:48 Abuse screen: Denies threats or abuse. Denies injuries from another. Nutritional ph screening: No deficits noted. Tuberculosis screening: No symptoms or risk factors identified. Fall Risk None identified. Assessment: 16:09 General: Appears in no apparent distress. comfortable, obese, Behavior is calm, ph cooperative, appropriate for age, Denies fever. Pain: Complains of pain in right lower quadrant and left lower quadrant. Neuro: Level of Consciousness is awake, alert, obeys commands, Oriented to person, place, time, situation. Cardiovascular: Capillary refill < 3 seconds in bilateral fingers Patient's skin is warm and dry. Respiratory: Reports pain with respiration Airway is patent Respiratory effort is even, unlabored, Respiratory pattern is regular, symmetrical, Denies shortness of breath. GI: Abdomen is obese, Reports lower abdominal pain, Patient currently denies diarrhea, nausea, vomiting. : Reports cramping, in bilateral lower quadrant(s). Derm: Skin is intact, Skin is pink, warm \T\ dry. Musculoskeletal: Circulation, motion, and sensation intact. Range of motion: intact in all extremities. 17:15 Reassessment: Patient appears in no apparent distress at this time. Patient and/or ph family updated on plan of care and expected duration. Pain level reassessed. Patient is alert, oriented x 3, equal unlabored respirations, skin warm/dry/pink. Pt continues to c/o abdominal pain, additional medication ordered by provider, when medication given IV infiltrated. 18:27 Reassessment: Patient appears in no apparent distress at this time. Patient and/or tw2 family updated on plan of care and expected duration. Pain level reassessed. Patient is alert, oriented x 3, equal unlabored respirations, skin warm/dry/pink. 19:05 Reassessment: Patient appears in no apparent distress at this time. Patient and/or tw2 family updated on plan of care and expected duration. Pain level reassessed. Patient is alert, oriented x 3, equal unlabored respirations, skin warm/dry/pink. Vital Signs: 15:37 BP 158 / 100; Pulse 84; Resp 24; Temp 98.2; Pulse Ox 98% on R/A; Pain 10/10; ll1 16:10 BP 158 / 100; Pulse 82; Resp 22; Pulse Ox 97% on R/A; ph 18:26 BP 155 / 99; Pulse 73; Resp 18; Pulse Ox 95% on R/A; tw2 ED Course: 15:27 Patient arrived in ED. rg4 15:30 Flavia Terry FNP-C is [facility]. kb 15:30 Vijay Johnston MD is Attending Physician. kb 15:37 Triage completed. sv 15:38 Nurse Practitioner and/or Physician Pellet Press Operator to see patient. sv 15:38 Arm band placed on. sv 15:48 Ann Law, PARVEEN is Primary Nurse. ph 15:49 Patient has correct armband on for positive identification. Call light in reach. Pulse ph ox on. NIBP on. Door closed. Noise minimized. Warm blanket given. 16:00 Initial lab(s) drawn, by me, sent to lab. Accessed peripheral vein via ultrasound, sv utilizing dynamic ultrasound technique Clean \T\ dry. Dressing intact. Good blood return. Flushes easily. 18G Insyte. Flushed right antecubital with 5 ml normal saline. 17:52 CT Abd/Pelvis - IV Contrast Only In Process Unspecified. EDMS 17:55 Accessed peripheral vein via ultrasound, utilizing dynamic ultrasound technique Clean \T\ tw2 dry. Dressing intact. Good blood return. Flushes easily. [address] AC by Dr. Johnston. 18:15 IV discontinued, intact, bleeding controlled, No redness/swelling at site. Pressure tw2 dressing applied, infiltration noted to LEFT ac, provider notified. 19:04 No provider procedures requiring assistance completed. tw2 Administered Medications: 16:08 Drug: NS 0.9% 1000 ml Route: IV; Rate: 1000 ml; Site: right antecubital; ph 18:37 Follow up: Response: No adverse reaction; IV Status: IV infiltrated; IV Intake: 300ml ph 16:08 Drug: Zofran (Ondansetron) 4 mg Route: IVP; Site: right antecubital; ph 18:38 Follow up: Response: No adverse reaction ph 16:08 Drug: morphine 4 mg Route: IVP; Site: right antecubital; ph 18:38 Follow up: Response: No adverse reaction ph 17:10 Drug: morphine 4 mg Route: IVP; Site: right antecubital; ph 18:39 Follow up: Response: No adverse reaction ph 18:44 Not Given (Duplicate Order): TORadol 30 mg IVP once kb 18:45 Not Given (no IV access, provider notified, IM ordered): TORadol 60 mg IM once tw2 18:50 Drug: TORadol 60 mg Route: IM; Site: left deltoid; tw2 19:04 Follow up: Response: No adverse reaction; Pain is decreased tw2 Intake: 18:37 IV: 300ml; Total: 300ml. ph Outcome: 18:42 Discharge ordered by . kb 19:04 Discharged to home ambulatory, with significant other. tw2 19:04 Condition: stable 19:04 Discharge instructions given to patient, significant other, Instructed on discharge instructions, follow up and referral plans. medication usage, Demonstrated understanding of instructions, follow-up care, medications, Prescriptions given X 1. 19:05 Patient left the ED. tw2 Signatures: Dispatcher [employer] EDMS Flavia Terry, ELÍAS AVALOS-Yi Lilly, RN RN Ann Márquez RN PARVEEN Pepe, PARVEEN Mcguire RN tw2 Maty Villa4 Ceferino Wilson RN RN ll1
[2020-07-19] MEDS ORDERED: KETOROLAC 30 MG/ML INJ ONE (19:00)
[2020-07-22 01:46] VITALS: TEMP 98.2
[2020-07-22 01:49] VITALS: BP 155/99; O2SAT 95
== END 2020-07-19 19:05 | disposition home or self-care (01) ==
LOC: ER 15:25
PROC: 05HF33Z Insertion of Infusion Device into Left Cephalic Vein, Percutaneous Approach (ICD-10-PCS; principal; 2020-07-19)
DX: R10.10 Upper abdominal pain, unspecified (principal)
CPT/HCPCS: 36415; 74177; 80048; 80076; 81003; 81025; 83690; 85025; 96361; 96372; 96374; 96375; 99284; J2405; J7030; Q9967

== ENCOUNTER 2020-07-20 18:14 | Emergency (ER) | payer OTHER, SELFPAY ==
--- OUTSIDE RECORDS SUMMARY | 2020-07-20 18:16 | XMS REPORT | Continuity of Care Document ---
:1995 Author Organization [facility] t Address [address] [place] [address] Dr. Far[address]. [address] [place] [address] Care Team Providers Name Role Phone Anayeli [...] Facility Department ID 2020-06-04 2020-06-[address] [facility] [id number] 00:00:00 00:00:00 Kelli Guadalupe PUBLICITY AGENT [id number] [facility] [id number] MATERNAL [phone] & CHILD [address] [place] [address] Results This patient has no known results.
[2020-07-20] MEDS ORDERED: MORPHINE 4 MG/ML SYR ONE (20:17)
[2020-07-20] MEDS ORDERED: ONDANSETRON 4 MG/2 ML VIAL ONE (20:17)
[2020-07-20 21:10] LABS: Absolute Lymphocytes (CBC) 2.4 K/uL (0.7-4.9); Basophils % 0.5 % (0-1.3); Hematocrit 31.3 % (36.0-45.0); Lymphocytes % 19.4 % (15.3-44.8); MPV 8.6 fL (7.6-11.3); RBC Red Blood Cell Count 3.88 M/uL (3.86-4.86)
[2020-07-20 21:22] LABS: Potassium 4.1 mmol/L (3.5-5.1)
[2020-07-20 22:03] LABS: Blood Morphology Comment NOT SEEN (NOT SEEN); Platelet Estimate ADEQ; White Blood Cell Scan OK (OK)
--- NOTE | 2020-07-20 23:18 | ER ---
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 Coronavirus screen: At this time, the client does not indicate any symptoms associated with coronavirus-19. Ebola Screen: Patient negative for fever greater than or equal to 101.5 degrees Fahrenheit, and additional compatible Ebola Virus Disease symptoms Patient denies exposure to infectious person. Patient denies travel to an Ebola-affected area in the 21 days before illness onset. No symptoms or risks identified at this time. Initial Sepsis Screen: Does the patient meet any 2 criteria? No. Patient's initial sepsis screen is negative. Does the patient have a suspected source of infection? No. Patient's initial sepsis screen is negative. Risk Assessment: Do you want to hurt yourself or someone else? Patient reports no desire to harm self or others. Onset of symptoms was July 20, 2020. 18:33 Method Of Arrival: Ambulatory iw 18:33 Acuity: ARVIND 3 iw Historical: - Allergies: 18:54 No Known Allergies; iw - Home Meds: 18:54 Bentyl 20 mg Oral tab [Active]; iw - PMHx: 18:54 Sleep Apnea; iw - PSHx: 18:54 ; iw - Immunization history:: Adult Immunizations not up to date. - Social history:: Smoking status: Patient denies any tobacco usage or history of. Screenin:00 Abuse screen: Denies threats or abuse. Nutritional screening: No deficits noted. dm5 Tuberculosis screening: No symptoms or risk factors identified. Fall Risk None identified. Assessment: 19:00 General: Appears in no apparent distress. uncomfortable, Behavior is calm, cooperative, jb4 appropriate for age. Pain: Complains of pain in pelvis Pain does not radiate. Pain currently is 10 out of 10 on a pain scale. Neuro: Level of Consciousness is awake, alert, obeys commands, Oriented to person, place, time, situation. Cardiovascular: Patient's skin is warm and dry. Respiratory: Airway is patent Respiratory effort is even, unlabored, Respiratory pattern is regular, symmetrical. GI: No signs and/or symptoms were reported involving the gastrointestinal system. : Reports vaginal bleeding that is heavy flow. EENT: No signs and/or symptoms were reported regarding the EENT system. Derm: Skin is intact, Skin is pink, warm \T\ dry. Musculoskeletal: Circulation, motion, and sensation intact. Range of motion: intact in all extremities. 20:00 Reassessment: Patient appears in no apparent distress at this time. Patient and/or jb4 family updated on plan of care and expected duration. Pain level reassessed. Patient is alert, oriented x 3, equal unlabored respirations, skin warm/dry/pink. 21:00 Reassessment: Patient appears in no apparent distress at this time. Patient and/or jb4 family updated on plan of care and expected duration. Pain level reassessed. Patient is alert, oriented x 3, equal unlabored respirations, skin warm/dry/pink. 22:00 Reassessment: Patient appears in no apparent distress at this time. Patient and/or jb4 family updated on plan of care and expected duration. Pain level reassessed. Patient is alert, oriented x 3, equal unlabored respirations, skin warm/dry/pink. Maintenance of IV performed. No blood return noted, flushes with ease. 23:47 Reassessment: Patient appears in no apparent distress at this time. Patient and/or dm5 family updated on plan of care and expected duration. Pain level reassessed. Patient is alert, oriented x 3, equal unlabored respirations, skin warm/dry/pink. Patient states feeling better. Vital Signs: 18:53 BP 153 / 94; Pulse 76; Resp 18 S; Temp 98.4; Pulse Ox 99% on R/A; Weight 192.78 kg; iw Height 5 ft. 5 in. (165.10 cm); Pain 10/10; 20:30 BP 161 / 105; Pulse 71; Resp 16; Pulse Ox 100% on R/A; jb4 22:00 BP 125 / 81; Pulse 77; Resp 16; Pulse Ox 100% ; jb4 22:30 BP 139 / 78; Pulse 77; Resp 16; Pulse Ox 100% on R/A; dm5 18:53 Body Mass Index 70.72 (192.78 kg, 165.10 cm) iw ED Course: 18:16 Patient arrived in ED. rg4 18:35 Triage completed. iw 18:35 Arm band placed on. iw 19:00 Sam Lau MD is Attending Physician. 7 19:00 Patient has correct armband on for positive identification. Placed in gown. Bed in low dm5 position. Call light in reach. Side rails up X 1. Pulse ox on. NIBP on. 19:10 Ethan Brunson, RN is Primary Nurse. jb4 20:17 Inserted saline lock: 22 gauge in left upper arm, using aseptic technique. mg2 21:46 CT Abd/Pelvis - Without Contrast In Process Unspecified. EDMS 23:16 Carola Figueroa MD is Referral Physician. 7 23:49 No provider procedures requiring assistance completed. IV discontinued, intact, dm5 bleeding controlled, No redness/swelling at site. Pressure dressing applied. Administered Medications: 20:18 Drug: Zofran (Ondansetron) 4 mg Route: IVP; Site: left antecubital; jb4 20:50 Follow up: Response: No adverse reaction dm5 20:20 Drug: morphine 4 mg Route: IVP; Site: left antecubital; jb4 23:51 Follow up: Response: No adverse reaction; Pain is decreased; RASS: Alert and Calm (0) dm5 Outcome: 23:17 Discharge ordered by MD. 7 23:49 Discharged to home ambulatory, with family. dm5 23:49 Condition: stable 23:49 Discharge instructions given to patient, Instructed on discharge instructions, follow up and referral plans. Demonstrated understanding of instructions, follow-up care. 23:51 Patient left the ED. dm5 Signatures: Dispatcher [employer] EDMS Rhonda Tyler RN RN dm5 Yen Alvarez RN RN iw Maty Villa rg4 Ethan Brunson, PARVEEN SAINI jb4 Tulio Romero RN RN mg2 Sam Lau MD MD 7 Corrections: (The following items were deleted from the chart) 18:55 18:53 Pulse 76bpm; Resp 18bpm; Spontaneous; Pulse Ox 99% RA; Temp 98.4F; 192.78 kg; iw Height 5 ft. 5 in.; BMI: 70.7; Pain 10/10; iw 23:51 20:50 Response: No adverse reaction dm5 dm5
--- NOTE | 2020-07-20 23:18 | EDPHYS ---
Physician Documentation [facility] Name: Andreina Gomez Age: 24 yrs Sex: Female : 1995 Arrival Date: 07/20/2020 Time: 18:16 Bed 4 Private MD: ED Physician Sam Lau HPI: 07/20 19:30 This 24 yrs old Female presents to ER via Ambulatory with complaints of mh7 Vaginal Bleeding, Vaginal Pain. 19:30 The patient presents with pelvic pain, vaginal bleeding that is moderate, with clots, mh7 reports using 10 pads or tampons per day. Onset: The symptoms/episode began/occurred last night. Modifying factors: The symptoms are alleviated by nothing, the symptoms are aggravated by nothing. 19:31 Associated signs and symptoms: Pertinent negatives: constipation, cramping, diarrhea, mh7 dyspareunia, dysuria, fever, hematuria, nausea, urinary frequency, vaginal discharge, vomiting. Severity of symptoms: At their worst the symptoms were moderate, last night, in the emergency department the symptoms have improved, mildly. The patient's method of control includes IUD. Historical: - Allergies: 18:54 No Known Allergies; iw - Home Meds: 18:54 Bentyl 20 mg Oral tab [Active]; iw - PMHx: 18:54 Sleep Apnea; iw - PSHx: 18:54 ; iw - Immunization history:: Adult Immunizations not up to date. - Social history:: Smoking status: Patient denies any tobacco usage or history of. ROS: 19:31 Constitutional: Negative for fever, chills, and weight loss, Eyes: Negative for injury, mh7 pain, redness, and discharge, ENT: Negative for injury, pain, and discharge, Neck: Negative for injury, pain, and swelling, Cardiovascular: Negative for chest pain, palpitations, and edema, Respiratory: Negative for shortness of breath, cough, wheezing, and pleuritic chest pain, Back: Negative for injury and pain, MS/Extremity: Negative for injury and deformity, Skin: Negative for injury, rash, and discoloration, Neuro: Negative for headache, weakness, numbness, tingling, and seizure, Psych: Negative for depression, anxiety, suicide ideation, homicidal ideation, and hallucinations, Allergy/Immunology: Negative for hives, rash, and allergies, Endocrine: Negative for neck swelling, polydipsia, polyuria, polyphagia, and marked weight changes, Hematologic/Lymphatic: Negative for swollen nodes, abnormal bleeding, and unusual bruising. Exam: 19:31 Constitutional: This is a well developed, well nourished patient who is awake, alert, mh7 and in no acute distress. Head/Face: Normocephalic, atraumatic. Eyes: Pupils equal round and reactive to light, extra-ocular motions intact. Lids and lashes normal. Conjunctiva and sclera are non-icteric and not injected. Cornea within normal limits. Periorbital areas with no swelling, redness, or edema. Neck: Trachea midline, no thyromegaly or masses palpated, and no cervical lymphadenopathy. Supple, full range of motion without nuchal rigidity, or vertebral point tenderness. No Meningismus. Chest/axilla: Normal chest wall appearance and motion. Nontender with no deformity. No lesions are appreciated. Cardiovascular: Regular rate and rhythm with a normal S1 and S2. No gallops, murmurs, or rubs. Normal PMI, no JVD. No pulse deficits. Respiratory: Lungs have equal breath sounds bilaterally, clear to auscultation and percussion. No rales, rhonchi or wheezes noted. No increased work of breathing, no retractions or nasal flaring. 19:31 Back: No spinal tenderness. No costovertebral tenderness. Full range of motion. Skin: Warm, dry with normal turgor. Normal color with no rashes, no lesions, and no evidence of cellulitis. MS/ Extremity: Pulses equal, no cyanosis. Neurovascular intact. Full, normal range of motion. Neuro: Awake and alert, GCS 15, oriented to person, place, time, and situation. Cranial nerves II-XII grossly intact. Motor strength 5/5 in all extremities. Sensory grossly intact. Cerebellar exam normal. Normal gait. Psych: Awake, alert, with orientation to person, place and time. Behavior, mood, and affect are within normal limits. 19:31 Abdomen/GI: Inspection: obese Bowel sounds: normal, in all quadrants, Palpation: abdomen is soft and non-tender, in all quadrants, Rectal exam: the exam is deferred, because of patient request, Indicators: McBurney's point is not tender, Hoffman's sign is negative, Rovsing's sign is negative, Obturator sign is negative, Psoas sign is negative, Liver: no appreciated palpable abnormalities, Hernia: not appreciated. 23:13 : CVA tenderness, is absent, Pelvic Exam: External exam: is normal, Speculum exam: mh7 mild bleeding, no cervicitis, os that is open, no tissue in cervix is seen, bimanual exam reveals no cervical motion tenderness, os that is open, normal sized uterus, no uterine tenderness, no adnexa tenderness or masses bilaterally, discharge, is not appreciated, the rehabilitation tech was present for the exam, Bladder: is normal, Rectal exam: is refused by patient or guardian. Vital Signs: 18:53 BP 153 / 94; Pulse 76; Resp 18 S; Temp 98.4; Pulse Ox 99% on R/A; Weight 192.78 kg; iw Height 5 ft. 5 in. (165.10 cm); Pain 10/10; 20:30 BP 161 / 105; Pulse 71; Resp 16; Pulse Ox 100% on R/A; jb4 22:00 BP 125 / 81; Pulse 77; Resp 16; Pulse Ox 100% ; jb4 22:30 BP 139 / 78; Pulse 77; Resp 16; Pulse Ox 100% on R/A; dm5 18:53 Body Mass Index 70.72 (192.78 kg, 165.10 cm) iw MDM: 23:13 Differential diagnosis: dysmenorrhea, ectopic , menometrorrhagia, menorrhea, mh7 nonspecific abdominal pain, uterine fibroids, urinary tract infection. Data reviewed: vital signs, nurses notes, old medical records, lab test result(s), CBC, electrolytes, urinalysis, radiologic studies, CT scan. Data interpreted: Pulse oximetry: on room air is 100 %. Interpretation: normal. Counseling: I had a detailed discussion with the patient and/or guardian regarding: the historical points, exam findings, and any diagnostic results supporting the discharge/admit diagnosis, lab results, radiology results, the need for outpatient follow up, an OB/Gyne specialist, to return to the emergency department if symptoms worsen or persist or if there are any questions or concerns that arise at home. Response to treatment: the patient's symptoms have markedly improved after treatment. 23:[address] [facility] 07/20 19:17 Order name: Abo/rh Typing; Complete Time: 21:58 [facility] 07/20 19:17 Order name: Basic Metabolic Panel; Complete Time: 21:26 [facility] 07/20 19:17 Order name: CBC with Diff; Complete Time: 22:48 [facility] 07/20 19:21 Order name: CT Abd/Pelvis - Without Contrast [facility] 07/20 21:11 Order name: CBC Smear Scan; Complete Time: 22:48 [facility] 07/20 19:17 Order name: IV Saline Lock; Complete Time: 20:14 [facility] 07/20 19:17 Order name: Labs collected and sent; Complete Time: 20:14 [facility] 07/20 19:17 Order name: NPO; Complete Time: 19:40 [facility] Administered Medications: 20:18 Drug: Zofran (Ondansetron) 4 mg Route: IVP; Site: left antecubital; jb4 20:50 Follow up: Response: No adverse reaction dm5 20:20 Drug: morphine 4 mg Route: IVP; Site: left antecubital; jb4 23:51 Follow up: Response: No adverse reaction; Pain is decreased; RASS: Alert and Calm (0) dm5 Disposition: 07/20/20 23:17 Discharged to Home. Impression: Vaginal Bleeding. - Condition is Stable. - Discharge Instructions: Metrorrhagia, [id number]. - Medication Reconciliation Form, Thank You Letter, Antibiotic Education, Prescription Opioid Use form. - Follow up: Carola Figueroa MD; When: 1 - 2 days; Reason: Worsening of condition, Recheck today's complaints. - Problem is an ongoing problem. - Symptoms have improved. Signatures: Dispatcher [employer] EDRhonda Marcial RN RN dm5 Yen Alvarez RN RN iw Bryson, James, RN RN jb4 Sam Lau MD MD 7 Corrections: (The following items were deleted from the chart) 19:59 19:17 Urine Test ordered. 7 jb4 23:51 19:17 Urine Dipstick-Ancillary ordered. 7 dm5 23:51 23:17 07/20/2020 23:17 Discharged to Home. Impression: Vaginal Bleeding. Condition is dm5 Stable. Forms are Medication Reconciliation Form, Thank You Letter, Antibiotic Education, Prescription Opioid Use. Follow up: Carola Figueroa; When: 1 - 2 days; Reason: Worsening of condition, Recheck today's complaints. Problem is an ongoing problem. Symptoms have improved. mh7
--- NOTE | 2020-07-21 12:14 | RAD REPORT ---
EXAM DESCRIPTION: CT - Abdomen Pelvis Wo Contrast - 07/21/2020 3:48 am CLINICAL HISTORY: The patient is 24 years old and is Female; Vaginal bleeding;Abd pain TECHNIQUE: Axial computed tomography images of the abdomen and pelvis without intravenous contrast. Sagittal and coronal reformatted images were created and reviewed. This CT exam was performed usi ng one or more of the following dose reduction techniques: automated exposure control, adjustment o f the mA and/or kV according to patient size, and/or use of iterative reconstruction technique. COMPARISON: CT of the abdomen and pelvis July 19, 2020 FINDINGS: LUNG BASES: Unremarkable. No mass. No consolidation. ABDOMEN: LIVER: The liver is diffusely fatty and enlarged. GALLBLADDER AND BILE DUCTS: Gallstones present within the gallbladder. There is no ductal dilata tion. PANCREAS: Unremarkable. No ductal dilation. SPLEEN: Unremarkable. ADRENALS: Unremarkable. No mass. KIDNEYS AND URETERS: No obstructing stones. No hydronephrosis. No perinephric fluid. STOMACH AND BOWEL: The stomach is minimally distended. The small bowel is normal in caliber. Mil d amount of stool is present throughout colon. A few scattered colonic diverticula are noted without surrounding inflammation. PELVIS: APPENDIX: The appendix is normal in caliber without surrounding inflammation. BLADDER: The bladder is not well distended. REPRODUCTIVE: There has been interval removal of the IUD. High density material is present wit hin the lower uterine segment. However, the uterus has decreased in size since prior exam. ABDOMEN and PELVIS: INTRAPERITONEAL SPACE: Unremarkable. No free air. No significant fluid collection. BONES/JOINTS: No acute fracture. SOFT TISSUES: The soft tissues are normal. VASCULATURE: Unremarkable. No abdominal aortic aneurysm. LYMPH NODES: Unremarkable. No enlarged lymph nodes. IMPRESSION: Interval removal of the IUD with a small amount of high density present within the lower uterine segment suggesting blood products. The uterus has slightly decreased in size since prior exa m. Electronically signed by: Ayleen Arciniega MD 07/20/2020 10:13 PM TECHNICIAN HELPER INSTRUMENT Due to temporary technical issues with the PACS/Fluency reporting system, reports are being signed by the in house radiologist without review as a courtesy to ensure prompt reporting. The interpreting r adiologist is fully responsible for the content of the report.
[2020-07-22 16:57] VITALS: TEMP 98.4
[2020-07-22 16:59] VITALS: O2SAT 100
[2020-07-22 17:01] VITALS: BP 139/78
== END 2020-07-20 23:51 | disposition home or self-care (01) ==
LOC: ER 18:14
DX: N93.9 Abnormal uterine and vaginal bleeding, unspecified (principal)
CPT/HCPCS: 36415; 74176; 80048; 85025; 86900; 86901; 96374; 96375; 99284; J2405

== ENCOUNTER 2020-10-27 08:34 | Emergency (ER) | payer OTHER ==
--- OUTSIDE RECORDS SUMMARY | 2020-10-27 08:36 | XMS REPORT | Continuity of Care Document ---
:[address] [facility] t Address [address] [place] [address] Dr. Garcia [address] [place] [id number] Care Team Providers Name Role Phone Unavailable Unavailable Unavailable Problems This patient has no known problems. Allergies, Adverse Reactions, Alerts This patient has no known allergies or adverse reactions. Medications This patient has no known medications. Procedures This patient has no known procedures. Results This patient has no known results.
[2020-10-27 10:59] LABS: Absolute Lymphocytes (CBC) 1.9 K/uL (0.7-4.9); Basophils % 0.8 % (0-1.3); Hematocrit 23.8 % (36.0-45.0); Lymphocytes % 17.9 % (15.3-44.8); MPV 7.3 fL (7.6-11.3)
[2020-10-27 11:07] LABS: Protime INR 1.26
[2020-10-27 11:21] LABS: ALT/SGPT 19 U/L (12-78); AST/SGOT 13 U/L (15-37); Albumin 2.9 g/dL (3.4-5.0); Alkaline Phosphatase 91 U/L (45-117); BUN Blood Urea Nitrogen 8 mg/dL (7-18); Bicarbonate 23 mmol/L (21-32); Bilirubin Direct < 0.1 mg/dL (0-0.2); Bilirubin Total 0.2 mg/dL (0.2-1.0); Glucose Level 179 mg/dL (74-106); Magnesium 2.3 mg/dL (1.8-2.4); NT PRO-BNP 47 pg/mL (<125); Potassium 4.1 mmol/L (3.5-5.1); Protein, Total 7.8 g/dL (6.4-8.2); Sodium Level 140 mmol/L (136-145); Troponin (Emerg Dept Use Only) < 0.02 ng/mL (0.0-0.045)
--- NOTE | 2020-10-27 11:26 | RAD REPORT ---
EXAM DESCRIPTION: RAD - Chest Single View - 10/27/2020 11:13 am CLINICAL HISTORY: dizziness;SOB, chest pain COMPARISON: None TECHNIQUE: AP portable chest image was obtained 10/27/2020 11:13 am . FINDINGS: Lungs are clear. Heart and vasculature are normal. No measurable pleural effusion and no p neumothorax. No acute bony abnormality seen. No acute aortic findings suspected. IMPRESSION: No acute cardiopulmonary process.
[2020-10-27 12:10] LABS: Anisocytosis 2+; Blood Morphology Comment NOTED (NOT SEEN); Hypochromasia 2+; Platelet Estimate ADEQ; White Blood Cell Scan OK (OK)
[2020-10-27 12:11] LABS: Ovalocytes 1+
[2020-10-27] MEDS ORDERED: NA CHLORIDE 0.9% 250 ML ONE ×2 (15:04→18:07)
[2020-10-27] MEDS ORDERED: ACETAMINOPHEN 325 MG TABLET ONE (15:17)
[2020-10-27] MEDS ORDERED: DIPHENHYDRAMINE 50 MG/ML VIAL ONE (15:17)
[2020-10-27 17:28] LABS: Urine Blood 1+ (Negative); Urine Glucose NEGATIVE (Negative); Urine Protein NEGATIVE (NEG); Urine Specific Gravity 1.025 (1.005-1.030); Urine Specific Gravity/Preg 1.025 (1.005-1.030)
[2020-10-27 18:37] LABS: Urine Bacteria <20 /HPF (<20); Urine Mucus 1+ /HPF (NONE SEEN); Urine RBC <5 /HPF (NONE SEEN)
[2020-10-27] MEDS ORDERED: CEFTRIAXONE/SWI 1gm 1 GM/10 ML SYR ONE (20:38)
--- NOTE | 2020-10-27 20:52 | EDPHYS ---
Physician Documentation [facility] Name: Andreina Gomez Age: 25 yrs Sex: Female : 1995 Arrival Date: 10/27/2020 Time: 08:36 Bed 15 Private MD: Gt Oliveros ED Physician Shannon Young HPI: 10/27 10:11 This 25 yrs old Female presents to ER via Ambulatory with complaints of pm1 Shortness of breath, Dizziness. 10:11 The patient has shortness of breath with light activity. Onset: The symptoms/episode pm1 began/occurred 5 day(s) ago. The patient's shortness of breath is aggravated by exertion, is alleviated by rest. Associated signs and symptoms: Pertinent negatives: chest pain, non-productive cough, productive cough, diaphoresis, fever, vomiting. Severity of symptoms: in the emergency department the symptoms are worse. The patient has experienced similar episodes in the past, several times. The patient has been recently seen by a physician: Dr. Figueroa for abnormal vaginal bleeding and has a scheduled D\T\C and IUD placement tomorrow. NEWS AGENT: 10:12 LMP N/A - Irregular menses ca1 Historical: - Allergies: 09:02 No Known Allergies; iw - Home Meds: 09:02 levothyroxine 75 mcg oral tab once daily [Active]; metformin 500 mg Oral Tb24 1 tab iw once daily [Active]; - PMHx: 09:02 Sleep Apnea; Hypothyroidism; Diabetes - NIDDM; iw - PSHx: 09:02 ; D \T\ C; iw - Immunization history:: Adult Immunizations not up to date. - Social history:: Smoking status: Patient denies any tobacco usage or history of. ROS: 10:11 Constitutional: Negative for fever, chills, and weight loss, Cardiovascular: Negative pm1 for chest pain, palpitations, and edema. 10:11 Back: Negative for injury and pain, : Negative for injury, bleeding, discharge, and swelling, MS/Extremity: Negative for injury and deformity, Skin: Negative for injury, rash, and discoloration. 10:11 Respiratory: Positive for shortness of breath, Negative for cough, wheezing. 10:11 Neuro: Positive for dizziness, Negative for headache, numbness, tingling, weakness. Exam: 10:11 Constitutional: This is a well developed, well nourished patient who is awake, alert, pm1 and in no acute distress. Head/Face: Normocephalic, atraumatic. 10:11 Back: No spinal tenderness. No costovertebral tenderness. Full range of motion. Skin: Warm, dry with normal turgor. Normal color with no rashes, no lesions, and no evidence of cellulitis. MS/ Extremity: Pulses equal, no cyanosis. Neurovascular intact. Full, normal range of motion. 10:11 Cardiovascular: Exam negative for acute changes, Rate: normal, Rhythm: regular, Pulses: no pulse deficits are appreciated. 10:11 Respiratory: Exam negative for acute changes, respiratory distress, shortness of breath. 10:11 Abdomen/GI: Inspection: obese Palpation: abdomen is soft and non-tender, in all quadrants. 10:11 Neuro: Exam negative for acute changes, Orientation: is normal, Mentation: is normal, Motor: is normal, moves all fours. Vital Signs: 08:58 BP 149 / 76; Pulse 109; Resp 20 S; Temp 98.4; Pulse Ox 100% on R/A; Weight 183.25 kg; iw Height 5 ft. 5 in. (165.10 cm); 10:10 BP 134 / 64; Pulse 96; Resp 16 S; Pulse Ox 100% on R/A; ca1 11:10 BP 115 / 44; Pulse 93; Resp 20 S; Pulse Ox 100% on R/A; ca1 11:44 BP 115 / 51; Pulse 97; Resp 24 S; Pulse Ox 100% on R/A; ca1 12:29 BP 123 / 70; Pulse 94; Resp 28; Temp 98.1(O); Pulse Ox 100% on R/A; mh5 13:00 BP 130 / 71 Sitting; Pulse 96; Resp 21; Pulse Ox 98% on R/A; zb 13:10 BP 121 / 65 Supine; Pulse 90; Resp 20; Pulse Ox 96% on R/A; zb 14:00 BP 122 / 59; Pulse 102; Resp 20; Pulse Ox 99% on R/A; zb 15:08 BP 120 / 77; Pulse 104; Resp 18; Temp 99.2; Pulse Ox 100% on R/A; zb 15:58 BP 121 / 65; Pulse 98; Resp 16; Pulse Ox 98% on R/A; zb 16:58 BP 113 / 72; Pulse 83; Resp 17; Temp 98.5; Pulse Ox 100% on R/A; zb 18:05 BP 103 / 73; Pulse 86; Resp 18; Temp 98.4; Pulse Ox 100% on R/A; zb 19:00 BP 114 / 65; Pulse 91; Resp 18; Pulse Ox 100% on R/A; zb 08:58 Body Mass Index 67.23 (183.25 kg, 165.10 cm) iw MDM: 10:06 Patient medically screened. pm1 13:30 Physician consultation: Carola Figueroa MD was called at 13:25, was contacted at pm1 13:25, regarding consult, patient's condition, recommends 2-3 units transfusion of blood. If patient no longer symptomatic from her anemia she may be discharged home. Informed the patient of the plan of care and she is in agreement. 17:14 Data reviewed: vital signs. pm1 20:49 Counseling: I had a detailed discussion with the patient and/or guardian regarding: the pm1 historical points, exam findings, and any diagnostic results supporting the discharge/admit diagnosis, lab results, the need for outpatient follow up, for definitive care, an OB/Gyne specialist, to return to the emergency department if symptoms worsen or persist or if there are any questions or concerns that arise at home. 20:49 ED course: Patient feels better after the blood transfusion and wants to go home. pm1 10/27 10:11 Order name: Basic Metabolic Panel; Complete Time: 11: pm10/27 10:11 Order name: CBC with Diff; Complete Time: 12:41 pm10/27 10:11 Order name: LFT's; Complete Time: 11: pm10/27 10:11 Order name: Magnesium; Complete Time: 11:22 pm10/27 10:11 Order name: NT PRO-BNP; Complete Time: 11:22 pm10/27 10:11 Order name: PT-INR; Complete Time: 11:22 pm10/27 10:11 Order name: Troponin (emerg Dept Use Only); Complete Time: 11: pm10/27 11:25 Order name: Type And Screen pm1 10/27 11:49 Order name: Bb Add On 10/27 12:10 Order name: CBC Smear Scan; Complete Time: 12:41 EDRI 10/27 13:22 Order name: Packed RBC Leukored [facility] 10/27 16:08 Order name: Urine Dipstick--Ancillary (enter results) 10/27 16:08 Order name: Urine --Ancillary (enter results) 10/27 16:08 Order name: Urine Dipstick-Ancillary; Complete Time: 18:08 [facility] 10/27 10:11 Order name: XRAY Chest (1 view); Complete Time: 11:32 pm10/27 10:11 Order name: EKG; Complete Time: 10:12 pm10/27 10:11 Order name: Cardiac monitoring; Complete Time: 10:21 pm10/27 10:11 Order name: EKG - Nurse/Tech; Complete Time: 10:22 pm10/27 10:11 Order name: IV Saline Lock; Complete Time: 10:22 pm10/27 10:11 Order name: Labs collected and sent; Complete Time: 10:22 pm10/27 10:11 Order name: O2 Per Protocol; Complete Time: 10:49 pm10/27 10:11 Order name: O2 Sat Monitoring; Complete Time: 10:49 pm10/27 10:13 Order name: Orthostatic Blood Pressure; Complete Time: 11:28 pm10/27 16:08 Order name: Urine --Ancillary; Complete Time: 18:08 [facility] 10/27 18:08 Order name: Urine Microscopic Only; Complete Time: 18:38 pm10/27 18:38 Order name: Urine Culture [facility] 10/27 11:39 Order name: Transfuse; Complete Time: 17:25 pm1 Administered Medications: 12:42 Not Given (Physician Discretion): NS 0.9% 1000 ml IV at 1000 ml once pm1 15:00 Drug: Tylenol 650 mg Route: PO; zb 21:15 Follow up: Response: No adverse reaction; Temperature is decreased zb 15:00 Drug: Benadryl (diphenhydrAMINE) 12.5 mg Route: IVP; Site: right antecubital; zb 21:15 Follow up: Response: No adverse reaction; Marked relief of symptoms zb 20:26 Drug: Rocephin (cefTRIAXone) 1 grams Route: IV; Rate: calculated rate; Site: right zb antecubital; 21:14 Follow up: Response: No adverse reaction; IV Status: Completed infusion; IV Intake: 20mlzb Disposition: 10/28 18:47 Co-signature as Attending Physician, Shannon Young MD. ma2 Disposition: 10/27/20 20:51 Discharged to Home. Impression: Anemia, unspecified, Urinary tract infection, site not specified. - Condition is Stable. - Discharge Instructions: Anemia, Nonspecific, Blood Transfusion, Adult, Urinary Tract Infection, Adult. - Prescriptions for Macrobid 100 mg Oral Capsule - take 1 capsule by ORAL route every 12 hours for 10 days; 20 capsule. - Medication Reconciliation Form, Thank You Letter, Antibiotic Education, Prescription Opioid Use form. - Follow up: Carola Figueroa; When: Tomorrow; Reason: Recheck today's complaints, Continuance of care, Re-evaluation by your physician, your scheduled surgical procedure. - Problem is new. - Symptoms have improved. Signatures: Dispatcher [employer] Yen Cho RN RN iw [place] Peter, KRISTINA BAKER APPRENTICE pm1 Shannon Young MD MD ma2 Roma Benito RN RN joseb Corrections: (The following items were deleted from the chart) 10/27 21:15 20:51 10/27/2020 20:51 Discharged to Home. Impression: Anemia, unspecified; Urinary zb tract infection, site not specified. Condition is Stable. Forms are Medication Reconciliation Form, Thank You Letter, Antibiotic Education, Prescription Opioid Use. Follow up: Carola Figueroa; When: Tomorrow; Reason: Recheck today's complaints, Continuance of care, Re-evaluation by your physician, your scheduled surgical procedure. Problem is new. Symptoms have improved. pm1
--- NOTE | 2020-10-27 20:52 | ER ---
Nurse's Notes [facility] Name: Andreina Gomez Age: 25 yrs Sex: Female : 1995 Arrival Date: 10/27/2020 Time: 08:36 Bed 15 Private MD: Gt Oliveros Diagnosis: Anemia, unspecified;Urinary tract infection, site not specified Presentation: 10/27 08:58 Chief complaint: Patient states: has been SOB on exertion and having chest pains and iw gets dizzy since Tuesday, is due to have a D\\T\\C tomorrow, was having heavy vaginal bleeding but that had stopped, is on iron supplement but feels like she is very anemic. Coronavirus screen: At this time, the client does not indicate any symptoms associated with coronavirus-19. Ebola Screen: Patient negative for fever greater than or equal to 101.5 degrees Fahrenheit, and additional compatible Ebola Virus Disease symptoms Patient denies exposure to infectious person. Patient denies travel to an Ebola-affected area in the 21 days before illness onset. No symptoms or risks identified at this time. Initial Sepsis Screen: Does the patient meet any 2 criteria? No. Patient's initial sepsis screen is negative. Does the patient have a suspected source of infection? No. Patient's initial sepsis screen is negative. Risk Assessment: Do you want to hurt yourself or someone else? Patient reports no desire to harm self or others. Onset of symptoms was October 23, 2020. 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 - Social history:: Smoking status: Patient denies any tobacco usage or history of. Screenin:10 Abuse screen: Denies threats or abuse. Denies injuries from another. Nutritional ca1 screening: No deficits noted. Tuberculosis screening: No symptoms or risk factors identified. Fall Risk IV access (20 points). Assessment: 10:10 General: Appears in no apparent distress. comfortable, Behavior is calm, cooperative, ca1 appropriate for age, Reports fatigue for >3 days. Pain: Denies pain. Neuro: Level of Consciousness is awake, alert, obeys commands, Oriented to person, place, time, situation, Reports a syncopal episode. Cardiovascular: Heart tones S1 S2 present Capillary refill < 3 seconds Patient's skin is warm and dry. Rhythm is regular. 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 GI: Abdomen is round non-distended, obese, Bowel sounds present X 4 quads. Abd is soft and non tender X 4 quads. : No signs and/or symptoms were reported regarding the genitourinary system. EENT: No signs and/or symptoms were reported regarding the EENT system. Derm: Skin is intact, is healthy with good turgor, Skin is pink, warm \\T\\ dry. Musculoskeletal: Circulation, motion, and sensation intact. Capillary refill < 3 seconds. 10:15 Reassessment: Pt complaints of dizziness when standing up from wheelchair and walking ca1 to bed. 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 Notified provider. Hold orthostatics. 11:10 Reassessment: Patient appears in no apparent distress at this time. Patient and/or ca1 family updated on plan of care and expected duration. Pain level reassessed. Patient is alert, oriented x 3, equal unlabored respirations, skin warm/dry/pink. 12:01 Reassessment: Patient appears in no apparent distress at this time. Patient and/or ca1 family updated on plan of care and expected duration. Pain level reassessed. Patient is alert, oriented x 3, equal unlabored respirations, skin warm/dry/pink. 13:00 Reassessment: Patient appears in no apparent distress at this time. Patient and/or zb family updated on plan of care and expected duration. Pain level reassessed. Patient is alert, oriented x 3, equal unlabored respirations, skin warm/dry/pink. patient ambulated to restroom. 13:45 Reassessment: notified ECP of orthostatics. zb 14:33 Reassessment: Patient appears in no apparent distress at this time. Patient and/or zb family updated on plan of care and expected duration. Pain level reassessed. Patient is alert, oriented x 3, equal unlabored respirations, skin warm/dry/pink. pt lying in bed at this time no changes. 15:08 Reassessment: Patient appears in no apparent distress at this time. Patient and/or zb family updated on plan of care and expected duration. Pain level reassessed. Patient is alert, oriented x 3, equal unlabored respirations, skin warm/dry/pink. IV blood infusing. 15:30 Reassessment: Patient appears in no apparent distress at this time. Patient and/or zb family updated on plan of care and expected duration. Pain level reassessed. Patient is alert, oriented x 3, equal unlabored respirations, skin warm/dry/pink. patient IV infusing. 16:40 Reassessment: Patient appears in no apparent distress at this time. Patient and/or zb family updated on plan of care and expected duration. Pain level reassessed. Patient is alert, oriented x 3, equal unlabored respirations, skin warm/dry/pink. IV blood infusing. 17:15 Reassessment: IV blood completed. zb 18:05 Reassessment: 2nd unit of blood started and verified with RN. zb 19:00 Reassessment: Patient appears in no apparent distress at this time. Patient and/or zb family updated on plan of care and expected duration. Pain level reassessed. Patient is alert, oriented x 3, equal unlabored respirations, skin warm/dry/pink. patient lying in bed. IV blood continues to infusing. 19:26 Reassessment: patient ambulating to restroom states she doesn't feel as dizzy anymore. zb 19:43 Reassessment: IV blood completed. zb 20:29 Reassessment: Patient appears in no apparent distress at this time. Patient and/or zb family updated on plan of care and expected duration. Pain level reassessed. Patient is alert, oriented x 3, equal unlabored respirations, skin warm/dry/pink. pt tolerating food and water. 20:59 Reassessment: no H\\T\\H repeat per PARLIAMENTARY ARCHIVIST. zb 21:12 Reassessment: Patient appears in no apparent distress at this time. Patient and/or zb family updated on plan of care and expected duration. Pain level reassessed. Patient is alert, oriented x 3, equal unlabored respirations, skin warm/dry/pink. pt d/c gait steady and even. Vital Signs: 08:58 BP 149 / 76; Pulse 109; Resp 20 S; Temp 98.4; Pulse Ox 100% on R/A; Weight 183.25 kg; iw Height 5 ft. 5 in. (165.10 cm); 10:10 BP 134 / 64; Pulse 96; Resp 16 S; Pulse Ox 100% on R/A; ca1 11:10 BP 115 / 44; Pulse 93; Resp 20 S; Pulse Ox 100% on R/A; ca1 11:44 BP 115 / 51; Pulse 97; Resp 24 S; Pulse Ox 100% on R/A; ca1 12:29 BP 123 / 70; Pulse 94; Resp 28; Temp 98.1(O); Pulse Ox 100% on R/A; mh5 13:00 BP 130 / 71 Sitting; Pulse 96; Resp 21; Pulse Ox 98% on R/A; zb 13:10 BP 121 / 65 Supine; Pulse 90; Resp 20; Pulse Ox 96% on R/A; zb 14:00 BP 122 / 59; Pulse 102; Resp 20; Pulse Ox 99% on R/A; zb 15:08 BP 120 / 77; Pulse 104; Resp 18; Temp 99.2; Pulse Ox 100% on R/A; zb 15:58 BP 121 / 65; Pulse 98; Resp 16; Pulse Ox 98% on R/A; zb 16:58 BP 113 / 72; Pulse 83; Resp 17; Temp 98.5; Pulse Ox 100% on R/A; zb 18:05 BP 103 / 73; Pulse 86; Resp 18; Temp 98.4; Pulse Ox 100% on R/A; zb 19:00 BP 114 / 65; Pulse 91; Resp 18; Pulse Ox 100% on R/A; zb 08:58 Body Mass Index 67.23 (183.25 kg, 165.10 cm) iw ED Course: 08:36 Patient arrived in ED. as 08:36 Gt Oliveros MD is Private Physician. as 09:01 Triage completed. iw 09:02 Arm band placed on. iw 09:57 [facility] pm1 09:57 Shannon Young MD is Attending Physician. pm1 09:57 Nichol Terrell, PARVEEN is Primary Nurse. ca1 10:10 Patient has correct armband on for positive identification. Placed in gown. Bed in low ca1 position. Call light in reach. Side rails up X2. clinical research monitor on. Pulse ox on. NIBP on. Warm blanket given. 10:15 Missed attempt(s): 22 gauge in right forearm. by PARVEEN Benavides. Bleeding controlled, band ca1 aid applied, catheter tip intact. 10:22 EKG done, by ED staff, reviewed by Chino Peter NP. [facility] 10:25 Missed attempt(s): 22 gauge in right wrist. Bleeding controlled, band aid applied, ca1 catheter tip intact. 11:13 XRAY Chest (1 view) In Process Unspecified. EDMS 11:45 Initial lab(s) drawn, Repeat lab(s) drawn. sent to lab. Inserted saline lock: 20 gauge ca1 in right antecubital area, using aseptic technique. Blood collected. 20:51 Carola Figueroa MD is Referral Physician. pm1 21:11 No provider procedures requiring assistance completed. IV discontinued, intact, zb bleeding controlled, No redness/swelling at site. Pressure dressing applied. Administered Medications: 12:42 Not Given (Physician Discretion): NS 0.9% 1000 ml IV at 1000 ml once pm1 15:00 Drug: Tylenol 650 mg Route: PO; zb 21:15 Follow up: Response: No adverse reaction; Temperature is decreased zb 15:00 Drug: Benadryl (diphenhydrAMINE) 12.5 mg Route: IVP; Site: right antecubital; zb 21:15 Follow up: Response: No adverse reaction; Marked relief of symptoms zb 20:26 Drug: Rocephin (cefTRIAXone) 1 grams Route: IV; Rate: calculated rate; Site: right zb antecubital; 21:14 Follow up: Response: No adverse reaction; IV Status: Completed infusion; IV Intake: 20mlzb Intake: 21:14 IV: 20ml; Total: 20ml. zb Outcome: 20:51 Discharge ordered by . pm1 21:12 Discharged to home ambulatory. zb 21:12 Condition: stable 21:12 Discharge instructions given to patient, Instructed on discharge instructions, follow up and referral plans. medication usage, Demonstrated understanding of instructions, follow-up care, medications, Prescriptions given X 1. 21:15 Patient left the ED. joseb Signatures: Dispatcher [employer] EDSarah Anne Irene, RN RN iw Chino Peter NP PARLIAMENTARY ARCHIVIST pm1 Arleen Guadalupe [facility] Nichol Terrell RN RN ca1 Roma Benito RN RN zb
[2020-10-27 22:54] VITALS: O2SAT 100
[2020-10-27 22:56] VITALS: TEMP 98.4
[2020-10-27 22:57] VITALS: BP 114/65
--- NOTE | 2020-10-28 12:56 | EKG ---
Test Date: 2020-10-27 Test Time: 10:52:35 Cement Tester Assistant: RYAN MEASUREMENT RESULTS: Intervals: Rate: 88 SC: 158 QRSD: 76 QT: 370 QTc: 447 [place]: P: 53 SC: 158 QRS: 50 T: 28 INTERPRETIVE STATEMENTS: Normal sinus rhythm Normal ECG No previous ECG available for comparison Electronically Signed On 10-28-20 12:52:53 CDT by Anson Whitlock
== END 2020-10-27 21:15 | disposition home or self-care (01) ==
LOC: ER 08:34
PROC: 30233N1 Transfusion of Nonautologous Red Blood Cells into Peripheral Vein, Percutaneous Approach (ICD-10-PCS; principal; 2020-10-27)
DX: D64.9 Anemia, unspecified (principal); N39.0 Urinary tract infection, site not specified; Z20.822 Contact with and (suspected) exposure to COVID-19; E11.9 Type 2 diabetes mellitus without complications; E03.9 Hypothyroidism, unspecified
CPT/HCPCS: 93005; 87088; 85025; 87086; 80048; 36415; 86900; 83735; 86850; 81025; 85610; 86901; 80076; 84484; 83880; 71045; 36430; J1200; J0696; P9016 ×2; J7050 ×2; 81003; 81015; 96365; 96375; 99285

== ENCOUNTER 2020-10-28 08:13 | Day surgery (SDC) | payer OTHER ==
[2020-10-22 14:55] LABS: Absolute Lymphocytes (CBC) 2.5 K/uL (0.7-4.9); Basophils % 0.4 % (0-1.3); Hematocrit 23.8 % (36.0-45.0); Lymphocytes % 22.2 % (15.3-44.8); MPV 7.2 fL (7.6-11.3); RBC Red Blood Cell Count 3.74 M/uL (3.86-4.86)
[2020-10-28 08:59] VITALS: O2SAT 100
[2020-10-28] MEDS ORDERED: NA CHLORIDE 0.9% 1,000 ML ONE (08:59)
[2020-10-28] MEDS ORDERED: LIDOCAINE 1% W/EPI 1:100,000 10 ML VIAL ONE (09:10)
[2020-10-28] MEDS ORDERED: NA CHLORIDE 0.9% 2,000 ML ONE (09:11)
[2020-10-28] MEDS ORDERED: FENTANYL CITR 100 MCG/2 ML ONE (09:11)
[2020-10-28] MEDS ORDERED: LIDOCAINE 2% MPF 5 ML VIAL ONE (09:11)
[2020-10-28] MEDS ORDERED: MIDAZOLAM HCL 2 MG/2 ML INJ ONE (09:11)
[2020-10-28] MEDS ORDERED: propofoL 200 MG/20 ML VIAL IV ONE (09:11)
[2020-10-28] MEDS ORDERED: LIDOCAINE 1% W/EPI 1:100,000 MDV 20 ML VIAL ONE (09:14)
[2020-10-28] MEDS ORDERED: ROCURONIUM 50 MG/5 ML VIAL IV ONE (09:39)
[2020-10-28] MEDS ORDERED: CEFAZOLIN SODIUM 1 GM/VIAL ONE (10:15)
[2020-10-28] MEDS ORDERED: KETOROLAC 30 MG/ML INJ ONE (10:27)
[2020-10-28] MEDS ORDERED: GLYCOPYRROLATE 0.2 MG/ML SYR ONE ×2 (10:29)
[2020-10-28 11:05] VITALS: BP 152/72; TEMP 98.4
--- NOTE | 2020-10-28 11:55 | OP ---
Date of Procedure: 10/28/2020 Surgeon: Carola Figueroa MD Preoperative Diagnoses: Menorrhagia (AUB-O/a), severe iron deficiency anemia. Postoperative Diagnoses: Menorrhagia (AUB-O/a), severe iron deficiency anemia. Procedures Performed: 1.Diagnostic hysteroscopy, D and C. 2.Insertion of IUD (Mirena Levonorgestrel system). Anesthesia: General endotracheal. Specimens: Endometrial curettings. Complications: No complications. Drains: No drains. Condition: Stable. Findings: Uterine cavity sounded to 11 cm and this was done under direct visualization with the hyst eroscope and the IUD was placed into the cavity at [address] cm and left in place. The strings were left to about 3 cm long at the external os. The cavity had no internal masses. The lining appeared to be slightly thickened, however, stable. N o other irregular findings were noted. Both tubal ostia were well visualized. Cavity was undistorte d. Procedure In Detail: The patient was taken to the OR after re-consenting her in the preop. She had received 3 units of blood in the ER 24 hours ago, still complaining of fatigue with a hard IV stick. Once all these were taken care off, then she was taken back to OR, placed in a supine fashion on the operating table. General anesthesia was given. Endotracheal intubation was performed using a Waterloo Scope without any problems. Then, she was carefully positioned in Darren stirrups in a dorsal lithoto my position. The vulva and vagina were prepped and draped in a sterile fashion. Speculum was placed to expose the cervix. Anterior lip grasped with 2 Allis clamps. Diagnostic SlimLine hysteroscope w ith 30-degrees lens, normal saline for distention medium was used to enter the cervical canal and it was traversed under direct vision into the uterine cavity. The cavity was probably about the top 1/2 of the sounding length, which was about 5 to 6 cm. The cavity undistorted. Both tubal ostia were v isualized. The scope was used to sound the cervix and the uterus. Once this was measured at 11 cm, that was rechecked with the help of uterine sound. Once this was confirmed, the scope was removed. Endometrial curettings were performed with a #1 curette and then the IUD was loaded and deployed in t he usual fashion without any problems leaving 3 cm of the string length and then trimmed here. The i nstruments were removed. Instrument, needle, and sponge counts were done and were correct at the end of the case. The patient tolerated the procedure well. She was extubated in the OR. Toradol 30 mg was given and she was recovered and brought to the PACU in stable condition. Her significant other was called and made aware of the findings of the procedure as well as the IUD insertion. She will fo llow up with me for her 1-week postop visit and then we will see her back in a month for an IUD strin g check, and all precautions have been given and written instructions were given regarding the postop recovery for her D and C, and she will be continued on her megestrol 40 mg daily that has controlled her bleeding and her bleeding has almost come to a stop prior to the procedure. She will also be se t up with [facility] for iron infusions as she is very poorly compliant with her iron oral intake. GISSEL/LUIS E Voice ID: [id number] Report ID: [id number]
== END 2020-10-28 12:16 | disposition home or self-care (01) ==
LOC: OR 08:13
PROVIDERS: ATTEND Obstetrics & Gynecology
PROC: 0UH98HZ Insertion of Contraceptive Device into Uterus, Via Natural or Artificial Opening Endoscopic (ICD-10-PCS; 2020-10-28)
PROC: 0UDB7ZX Extraction of Endometrium, Via Natural or Artificial Opening, Diagnostic (ICD-10-PCS; principal; 2020-10-28 09:30)
PROC: 0UJD8ZZ Inspection of Uterus and Cervix, Via Natural or Artificial Opening Endoscopic (ICD-10-PCS; 2020-10-28 09:30)
DX: N84.0 Polyp of corpus uteri (principal); D50.0 Iron deficiency anemia secondary to blood loss (chronic); E03.9 Hypothyroidism, unspecified; E66.01 Morbid (severe) obesity due to excess calories; Z20.822 Contact with and (suspected) exposure to COVID-19
CPT/HCPCS: 85025; 36415; 82947; 88305; 58558; 58300; U0002; J2704; J2250; J3010; J7030 ×2; J0690

== ENCOUNTER 2020-12-18 13:54 | Emergency (ER) | payer OTHER ==
--- OUTSIDE RECORDS SUMMARY | 2020-12-18 13:57 | XMS REPORT | Continuity of Care Document ---
:1995 Author Organization [facility] t Address [address] [place] [address] Dr. Garcia [address] [place] [id number] Care Team Providers Name Role Phone Unavailable Unavailable Unavailable Problems This patient has no known problems. Allergies, Adverse Reactions, Alerts This patient has no known allergies or adverse reactions. Medications This patient has no known medications. Procedures This patient has no known procedures. Results This patient has no known results.
[2020-12-18 17:03] LABS: Urine Blood 2+ (Negative); Urine Glucose Negative (Negative); Urine Protein 1+ (Negative); Urine Specific Gravity >=1.030 (1.005-1.030); Urine pH 5.5 (5.0-7.0)
[2020-12-18 17:17] LABS: Urine Bacteria 20-50 /HPF (<20); Urine Mucus 2+ /HPF (NONE SEEN); Urine RBC <5 /HPF (NONE SEEN)
--- NOTE | 2020-12-18 19:38 | ER ---
Nurse's Notes [facility] Name: Andreina Gomez Age: 25 yrs Sex: Female : 1995 Arrival Date: 12/18/2020 Time: 13:59 Bed 12 Private MD: Diagnosis: Urinary tract infection, site not specified Presentation: 12/18 14:30 Chief complaint: Patient states: Abd pain since Tuesday. Started having dysuria Tuesday. ll1 No fever, some nausea. Coronavirus screen: Client denies travel out of the [place] in the last 14 days. At this time, the client does not indicate any symptoms associated with coronavirus-19. Ebola Screen: Patient denies travel to an Ebola-affected area in the 21 days before illness onset. Initial Sepsis Screen: Does the patient meet any 2 criteria? HR > 90 bpm. No. Patient's initial sepsis screen is negative. Does the patient have a suspected source of infection? Yes: Dysuria/Frequency/Urgency/UTI. Risk Assessment: Do you want to hurt yourself or someone else? Patient reports no desire to harm self or others. Onset of symptoms was December 15, 2020. 14:30 Method Of Arrival: Ambulatory ll1 14:30 Acuity: ARVIND 3 ll1 Historical: - Allergies: 14:32 No Known Allergies; ll1 - PMHx: 14:32 Diabetes - NIDDM; Hypothyroidism; Sleep Apnea; ll1 - PSHx: 14:32 ; D \T\ C; ll1 - Immunization history:: Flu vaccine is not up to date. - Social history:: Smoking status: Patient denies any tobacco usage or history of. Screenin:08 Abuse screen: Denies threats or abuse. Denies injuries from another. Nutritional iw screening: No deficits noted. Tuberculosis screening: No symptoms or risk factors identified. Fall Risk None identified. Assessment: 20:06 General: Appears in no apparent distress. Behavior is calm, cooperative. Pain:. Neuro: iw Level of Consciousness is awake, alert, obeys commands, Oriented to person, place, time, situation, Moves all extremities. Full function. : Reports burning with urination. Derm: Skin is intact, is healthy with good turgor. Musculoskeletal: Range of motion: intact in all extremities. Vital Signs: 14:30 BP 139 / 73; Pulse 110; Resp 18; Temp 97.2; Pulse Ox 99% ; Weight 183.7 kg; Height 5 ll1 ft. 5 in. (165.10 cm); Pain 0/10; 20:04 BP 132 / 87; Pulse 98; Resp 16 S; iw 14:30 Body Mass Index 67.39 (183.70 kg, 165.10 cm) ll1 ED Course: 13:59 Patient arrived in ED. mr 14:31 Triage completed. ll1 14:32 Arm band placed on. ll1 17:04 Urine Microscopic Only Sent. ll1 17:04 Urine Microscopic Only Sent. ll1 19:30 Yen Alvarez, RN is Primary Nurse. iw 19:31 Flavia Terry FNP-C [facility]. kb 19:31 Vijay Johnston MD is Attending Physician. kb 20:08 No provider procedures requiring assistance completed. Patient did not have IV access iw during this emergency room visit. 20:09 Patient has correct armband on for positive identification. iw Administered Medications: 20:00 Drug: Rocephin (cefTRIAXone) 1 grams Route: IM; Site: right deltoid; iw 20:10 Follow up: Response: No adverse reaction iw Outcome: 19:37 Discharge ordered by . kb 20:08 Discharged to home ambulatory. iw 20:08 Condition: good 20:08 Discharge instructions given to patient, Instructed on discharge instructions, follow up and referral plans. medication usage, Demonstrated understanding of instructions, follow-up care, medications, Prescriptions given X 2. 20:09 Patient left the ED. iw Addendum: 12/21/2020 08:58 Addendum: Culture Results: Positive urine culture. No further action required. Bacteria h b sensitive to prescribed antibiotic. Signatures: Flavia Terry FNP-C FNP-Ckb Ashlie Ltuz Yen Alvarez, RN PARVEEN iw Ebony Cuevas RN RN Ceferino Wilson RN RN ll1
--- NOTE | 2020-12-18 19:38 | EDPHYS ---
Physician Documentation [facility] Name: Andreina Gomez Age: 25 yrs Sex: Female : 1995 Arrival Date: 12/18/2020 Time: 13:59 Bed 12 Private MD: ED Physician Vijay Johnston HPI: 12/18 20:31 This 25 yrs old Female presents to ER via Ambulatory with complaints of kb Urinary Problem. 20:31 The patient presents with urinary symptoms, dysuria, frequency, cloudy urine. The kb patient has not recently seen a physician. 20:31 Onset: The symptoms/episode began/occurred 4 day(s) ago. Modifying factors: The kb symptoms are alleviated by nothing, the symptoms are aggravated by urinating. Associated signs and symptoms: Pertinent positives: dysuria, urinary frequency. Severity of symptoms: At their worst the symptoms were moderate, in the emergency department the symptoms are unchanged. The patient has experienced similar episodes in the past, a few times. Pt states "I have a UTI.". Historical: - Allergies: 14:32 No Known Allergies; ll1 - PMHx: 14:32 Diabetes - NIDDM; Hypothyroidism; Sleep Apnea; ll1 - PSHx: 14:32 ; D \\T\\ C; ll1 - Immunization history:: Flu vaccine is not up to date. - Social history:: Smoking status: Patient denies any tobacco usage or history of. ROS: 20:30 Constitutional: Negative for fever, chills, and weight loss. kb 20:30 Abdomen/GI: Positive for abdominal pain, of the suprapubic area, Negative for nausea, vomiting, and diarrhea. 20:30 : Positive for urinary symptoms, urinary frequency, burning with urination, cloudy urine. 20:30 All other systems are negative. Exam: 20:30 Constitutional: This is a well developed, well nourished patient who is awake, alert, kb and in no acute distress. ENT: Moist Mucous membranes Cardiovascular: Regular rate and rhythm with a normal S1 and S2. No gallops, murmurs, or rubs. No pulse deficits. Respiratory: Respirations even and unlabored. No increased work of breathing, no retractions or nasal flaring. Abdomen/GI: Soft, non-tender. No distention Skin: Warm, dry with normal turgor. Normal color. MS/ Extremity: Pulses equal, no cyanosis. Neurovascular intact. Full, normal range of motion. Neuro: Awake and alert, GCS 15, oriented to person, place, time, and situation. Moves all extremities. Normal gait. Psych: Awake, alert, with orientation to person, place and time. Behavior, mood, and affect are within normal limits. Vital Signs: 14:30 BP 139 / 73; Pulse 110; Resp 18; Temp 97.2; Pulse Ox 99% ; Weight 183.7 kg; Height 5 ll1 ft. 5 in. (165.10 cm); Pain 0/10; 20:04 BP 132 / 87; Pulse 98; Resp 16 S; iw 14:30 Body Mass Index 67.39 (183.70 kg, 165.10 cm) ll1 MDM: 19:32 Patient medically screened. kb 20:29 Data reviewed: vital signs, nurses notes. Data interpreted: Pulse oximetry: on room air kb is 99 %. Interpretation: normal. Counseling: I had a detailed discussion with the patient and/or guardian regarding: the historical points, exam findings, and any diagnostic results supporting the discharge/admit diagnosis, lab results, the need for outpatient follow up, a family practitioner, to return to the emergency department if symptoms worsen or persist or if there are any questions or concerns that arise at home. 12/18 15:06 Order name: Urine Microscopic Only 12/18 15:06 Order name: Urine Microscopic Only; Complete Time: 19:26 [facility] 12/18 17:03 Order name: Urine Dipstick-Ancillary; Complete Time: 19:26 [facility] 12/18 17:19 Order name: Urine Culture [facility] 12/18 15:06 Order name: Urine Dipstick-Ancillary (obtain specimen); Complete Time: 19:31 kb Administered Medications: 20:00 Drug: Rocephin (cefTRIAXone) 1 grams Route: IM; Site: right deltoid; iw 20:10 Follow up: Response: No adverse reaction iw Disposition: 12/18/20 19:37 Discharged to Home. Impression: Urinary tract infection, site not specified. - Condition is Stable. - Discharge Instructions: Urinary Tract Infection, Adult, [id number]. - Prescriptions for Pyridium 200 mg Oral Tablet - take 1 tablet by ORAL route every 8 hours for 3 days; 9 tablet. Macrobid 100 mg Oral Capsule - take 1 capsule by ORAL route every 12 hours for 10 days; 20 capsule. - Medication Reconciliation Form, Thank You Letter, Antibiotic Education, Prescription Opioid Use form. - Follow up: Emergency Department; When: As needed; Reason: Worsening of condition. Follow up: Private Physician; When: 2 - 3 days; Reason: Recheck today's complaints, Continuance of care, Re-evaluation by your physician. Addendum: 12/23/2020 07:03 Co-signature as Attending Physician, Vijay Johnston MD. r n Signatures: Dispatcher [employer] EDMS Flavia Terry, CLINICAL NURSE MANAGER-C CLINICAL NURSE MANAGER-Yen Vega, RN RN iw Vijay Johnston MD MD rn Lewis, Lynsay, RN RN ll1 Corrections: (The following items were deleted from the chart) 12/18 20:09 19:37 12/18/2020 19:37 Discharged to Home. Impression: Urinary tract infection, site iw not specified. Condition is Stable. Forms are Medication Reconciliation Form, Thank You Letter, Antibiotic Education, Prescription Opioid Use. Follow up: Emergency Department; When: As needed; Reason: Worsening of condition. Follow up: Private Physician; When: 2 - 3 days; Reason: Recheck today's complaints, Continuance of care, Re-evaluation by your physician. kb
[2020-12-18] MEDS ORDERED: CEFTRIAXONE 1000 MG/VIAL ONE (20:02)
[2020-12-18] MEDS ORDERED: LIDOCAINE 1% MPF 5 ML VIAL ONE (20:02)
[2020-12-18 20:19] VITALS: O2SAT 99
[2020-12-18 20:20] VITALS: BP 132/87
[2020-12-18 20:26] VITALS: TEMP 98
== END 2020-12-18 20:09 | disposition home or self-care (01) ==
LOC: ER 13:54
DX: N39.0 Urinary tract infection, site not specified (principal); E11.9 Type 2 diabetes mellitus without complications
CPT/HCPCS: 81003; 81015; 87077; 87086; 87088; 87186; 96372; 99283

== ENCOUNTER 2021-04-28 20:06 | Emergency (ER) | payer OTHER ==
--- NOTE | 2021-04-28 21:47 | RAD REPORT ---
EXAM DESCRIPTION: Sandi Single View04/28/2021 9:28 pm CLINICAL HISTORY: sob COMPARISON: September 2020 FINDINGS: The lungs appear clear of acute infiltrate. The heart is normal size IMPRESSION: No acute abnormalities displayed
[2021-04-28 22:00] LABS: Urine Bacteria <20 /HPF (<20); Urine Mucus 1+ /HPF (NONE SEEN); Urine RBC TNTC /HPF (NONE SEEN)
[2021-04-28 22:04] LABS: Absolute Lymphocytes (CBC) 2.9 K/uL (0.7-4.9); Basophils % 1.4 % (0-1.3); Hematocrit 27.4 % (36.0-45.0); Lymphocytes % 26.4 % (15.3-44.8); MPV 7.5 fL (7.6-11.3); RBC Red Blood Cell Count 3.75 M/uL (3.86-4.86)
[2021-04-28 22:22] LABS: BUN Blood Urea Nitrogen 9 mg/dL (7-18); Bicarbonate 27 mmol/L (21-32); Glucose Level 148 mg/dL (74-106); NT PRO-BNP 30 pg/mL (<125); Potassium 3.8 mmol/L (3.5-5.1); Sodium Level 140 mmol/L (136-145); Troponin (Emerg Dept Use Only) < 0.02 ng/mL (0.0-0.045)
[2021-04-28 23:07] LABS: Protime INR 1.13
[2021-04-28 23:12] LABS: Blood Morphology Comment NOT SEEN (NOT SEEN); Platelet Estimate ADEQ; White Blood Cell Scan OK (OK)
[2021-04-28] MEDS ORDERED: ACETAMINOPHEN 500 MG TAB ONE (23:16)
[2021-04-29 00:18] LABS: Specific Gravity ND (1.005-1.030)
--- NOTE | 2021-04-29 01:23 | ER ---
Nurse's Notes [facility] Name: Andreina Gomez Age: 25 yrs Sex: Female : 1995 Arrival Date: 04/28/2021 Time: 20:11 Bed 16 Private MD: Diagnosis: Anemia, unspecified;Vaginal Bleeding;Dyspnea, unspecified;Headache Presentation: 04/28 20:21 Chief complaint: Patient states: Pt states she has been having a heavy vaginal flow wg since Apr 14. States she has been admitted multiple times in the past for bleeding. Pt denies any pain in her abd or reproductive areas. Pt states she is having a lot of anxiety related to an incident involving law enforcement and is now c/o of a headache. Coronavirus screen: Vaccine status: Patient reports being unvaccinated. At this time, the client does not indicate any symptoms associated with coronavirus-19. Ebola Screen: Patient negative for fever greater than or equal to 101.5 degrees Fahrenheit, and additional compatible Ebola Virus Disease symptoms Patient denies exposure to infectious person. Patient denies travel to an Ebola-affected area in the 21 days before illness onset. No symptoms or risks identified at this time. Initial Sepsis Screen: Does the patient meet any 2 criteria? No. Patient's initial sepsis screen is negative. Does the patient have a suspected source of infection? No. Patient's initial sepsis screen is negative. Risk Assessment: Do you want to hurt yourself or someone else? Patient reports no desire to harm self or others. Onset of symptoms was April 14, 2021. 20:21 Method Of Arrival: Ambulatory wg 20:21 Acuity: ARVIND 3 wg Triage Assessment: 20:25 General: Appears in no apparent distress. obese, Behavior is cooperative, agitated. wg Pain: Complains of pain in generalized headache Pain currently is 9 out of 10 on a pain scale. : Reports vaginal bleeding that is bright red, with clots, heavy flow Denies pain to abd or reproductive areas, just bleeding. 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 - Social history:: Smoking status: Patient denies any tobacco usage or history of. Patient/guardian denies using alcohol, tobacco products. Screenin:40 Abuse screen: Denies threats or abuse. Denies injuries from another. Nutritional dc2 screening: No deficits noted. Tuberculosis screening: No symptoms or risk factors identified. Never had TB. Possible symptoms: None Risk factors: None. Fall Risk None identified. No fall in past 12 months (0 pts). No secondary diagnosis (0 pts). No IV (0 pts). Ambulatory Aid- None/Bed Rest/Nurse Assist (0 pts). Gait- Normal/Bed Rest/Wheelchair (0 pts) Mental Status- Oriented to own ability (0 pts). Total Saavedra Fall Scale indicates No Risk (0-24 pts). Assessment: 20:45 Reassessment: Patient appears in no apparent distress at this time. General: Appears dc2 obese, Behavior is cooperative, anxious, Very talkative about her issues with the INSURANCE APPLICATION INVESTIGATOR DrKimo and the anxiety that is causing the headache. . Pain: Complains of pain in back of head Pain does not radiate. Pain currently is 10 out of 10 on a pain scale. Quality of pain is described as aching, Pain began Pt very vague when asked about headache, only that it started after the anxiety attack and couldn't recall when the panic attack started. Neuro: No deficits noted. Reports headache. : Urine is Very dark red. Reports vaginal bleeding that is bright red, with clots, since April 13. Musculoskeletal: No deficits noted. 22:50 Reassessment: Pt co headache to back of head getting worse. Dr. Lau made aware and dc2 will administer 1 gram tylenol po. 04/29 00:00 Reassessment: Waiting on UPt From lab, speak to Candelario, states he will run a UPT. ky2 Vital Signs: 04/28 20:21 BP 142 / 85; Pulse 90; Resp 20; Temp 98.9; Pulse Ox 100% on R/A; Weight 186.43 kg; wg Height 5 ft. 5 in. (165.10 cm); Pain 9/10; 22:00 BP 131 / 81; Pulse 97; Resp 20; Pulse Ox 100% ; Pain 10/10; dc2 23:00 BP 143 / 85; Pulse 81; Resp 20; Temp 98.0; Pulse Ox 100% on R/A; Pain 10/10; dc2 23:30 Pain 8/10; dc2 23:54 BP 132 / 79; Pulse 75; Resp 18; Pulse Ox 100% ; Pain 8/10; dc2 04/29 01:15 BP 128 / 87; Pulse 74; Resp 20; Temp 98.2; Pulse Ox 100% ; Pain 7/10; dc2 04/28 20:21 Body Mass Index 68.39 (186.43 kg, 165.10 cm) wg ED Course: 04/28 20:11 Patient arrived in ED. bp1 20:25 Triage completed. wg 20:25 Arm band placed on right wrist. wg 20:45 Patient has correct armband on for positive identification. Placed in gown. Bed in low dc2 position. Call light in reach. Side rails up X 1. campus monitor on. Pulse ox on. NIBP on. Door closed. Warm blanket given. 20:57 Sma Lau MD is Attending Physician. mh7 21:00 Inserted saline lock: 22 gauge in left forearm, using aseptic technique. dc2 21:15 Urine collected: clean catch specimen, blood tinged, very dark red , Notified lab and dc2 stated that we could send cup of urine to lab and that test would be completed per PARVEEN Villavicencio. 21:18 Melany Brown RN is Primary Nurse. dc2 21:22 X-ray(s) taken. dc2 21:28 Chest Single View XRAY In Process Unspecified. EDMS 04/29 00:[address] via stretcher. dc2 00:34 CT Chest For PE Angio In Process Unspecified. EDMS 00:34 CT Head Brain wo Cont In Process Unspecified. EDMS 01:19 Carola Figueroa MD is Referral Physician. [facility] 01:30 No provider procedures requiring assistance completed. IV discontinued, intact, dc2 bleeding controlled, No redness/swelling at site. Pressure dressing applied. Administered Medications: 04/28 22:55 Drug: Tylenol 1000 mg {Note: headache to back of head, prs 10/10.} Route: PO; dc2 23:30 Follow up: Pain 8/10 dc2 Outcome: 04/29 01:23 Discharge ordered by . ngoc 01:38 Discharged to home ambulatory. dc2 01:38 Condition: stable 01:38 Discharge instructions given to patient, Instructed on discharge instructions, follow up and referral plans. Demonstrated understanding of follow-up care. 01:39 Patient left the ED. dc2 Signatures: Dispatcher [employer] EDMS Starr Titus Maurice, MD MD mh7 Gamba, Liam, RN wg Charters, Denise, RN RN dc2 Corrections: (The following items were deleted from the chart) 04/28 21:35 20:25 PMHx: None; naun dc2
--- NOTE | 2021-04-29 01:23 | EDPHYS ---
Physician Documentation [facility] Name: Andreina Gomez Age: 25 yrs Sex: Female : 1995 Arrival Date: 04/28/2021 Time: 20:11 Bed 16 Private MD: ED Physician Sam Lau HPI: 04/28 20:50 This 25 yrs old Female presents to ER via Ambulatory with complaints of mh7 Vaginal Bleeding, Shortness Of Breath, Headache. 20:50 The patient presents with vaginal bleeding that is moderate. Onset: The mh7 symptoms/episode began/occurred 2 week(s) ago. Modifying factors: The symptoms are alleviated by nothing, the symptoms are aggravated by nothing. Associated signs and symptoms: Pertinent positives: Generalized fatigue, headache, intermittent shortness of breath with activities, Pertinent negatives: constipation, cramping, diarrhea, dyspareunia, dysuria, fever, hematuria, nausea, urinary frequency, vaginal discharge, vomiting. Severity of symptoms: At their worst the symptoms were moderate, 7 day(s) ago, in the emergency department the symptoms are unchanged. The patient has experienced similar episodes in the past, multiple times. Patient reports a history of heavy vaginal bleeding that has required intermittent blood transfusions. She states that she has been having similar episode for the last 2 weeks. She reports usual symptoms when she requires anemia including generalized fatigue, and shortness of breath with activities. She denies any fever, chest pain, cough, abdominal pain, nausea, vomiting, diarrhea, dizziness, numbness/tingling, or focal weakness.. RN ACUTE CARE: 20:25 LMP 04/14/2021 Historical: - Allergies: 20:25 No Known Allergies; - Home Meds: 20:25 None [Active]; wg - PMHx: 20:40 Diabetes - NIDDM; Hypothyroidism; Sleep Apnea; Anxiety; dc2 - Immunization history:: Adult Immunizations up to date, Adult Immunizations up to date, Client reports having NOT received the Covid vaccine. - Social history:: Smoking status: Patient denies any tobacco usage or history of. Patient/guardian denies using alcohol, tobacco products. ROS: 20:50 Constitutional: Negative for fever, chills, and weight loss, Eyes: Negative for injury, mh7 pain, redness, and discharge, ENT: Negative for injury, pain, and discharge, Neck: Negative for injury, pain, and swelling, Cardiovascular: Negative for chest pain, palpitations, and edema, Abdomen/GI: Negative for abdominal pain, nausea, vomiting, diarrhea, and constipation, Back: Negative for injury and pain, MS/Extremity: Negative for injury and deformity, Skin: Negative for injury, rash, and discoloration, Neuro: Negative for headache, weakness, numbness, tingling, and seizure, Psych: Negative for depression, anxiety, suicide ideation, homicidal ideation, and hallucinations, Allergy/Immunology: Negative for hives, rash, and allergies, Endocrine: Negative for neck swelling, polydipsia, polyuria, polyphagia, and marked weight changes. Exam: 20:50 Constitutional: This is a well developed, well nourished patient who is awake, alert, mh7 and in no acute distress. Head/Face: Normocephalic, atraumatic. Eyes: Pupils equal round and reactive to light, extra-ocular motions intact. Lids and lashes normal. Conjunctiva and sclera are non-icteric and not injected. Cornea within normal limits. Periorbital areas with no swelling, redness, or edema. Neck: Trachea midline, no thyromegaly or masses palpated, and no cervical lymphadenopathy. Supple, full range of motion without nuchal rigidity, or vertebral point tenderness. No Meningismus. Chest/axilla: Normal chest wall appearance and motion. Nontender with no deformity. No lesions are appreciated. Cardiovascular: Regular rate and rhythm with a normal S1 and S2. No gallops, murmurs, or rubs. Normal PMI, no JVD. No pulse deficits. Respiratory: Lungs have equal breath sounds bilaterally, clear to auscultation and percussion. No rales, rhonchi or wheezes noted. No increased work of breathing, no retractions or nasal flaring. Abdomen/GI: Soft, non-tender, with normal bowel sounds. No distension or tympany. No guarding or rebound. No evidence of tenderness throughout. Back: No spinal tenderness. No costovertebral tenderness. Full range of motion. Skin: Warm, dry with normal turgor. Normal color with no rashes, no lesions, and no evidence of cellulitis. MS/ Extremity: Pulses equal, no cyanosis. Neurovascular intact. Full, normal range of motion. Neuro: Awake and alert, GCS 15, oriented to person, place, time, and situation. Cranial nerves II-XII grossly intact. Motor strength 5/5 in all extremities. Sensory grossly intact. Cerebellar exam normal. Normal gait. Psych: Awake, alert, with orientation to person, place and time. Behavior, mood, and affect are within normal limits. 20:50 : CVA tenderness, is absent, Pelvic Exam: The exam is refused by the [facility] patient/guardian. The risks and consequences are understood by the patient, Bladder: is normal. Vital Signs: 20:21 BP 142 / 85; Pulse 90; Resp 20; Temp 98.9; Pulse Ox 100% on R/A; Weight 186.43 kg; wg Height 5 ft. 5 in. (165.10 cm); Pain 9/10; 22:00 BP 131 / 81; Pulse 97; Resp 20; Pulse Ox 100% ; Pain 10/10; dc2 23:00 BP 143 / 85; Pulse 81; Resp 20; Temp 98.0; Pulse Ox 100% on R/A; Pain 10/10; dc2 23:30 Pain 8/10; dc2 23:54 BP 132 / 79; Pulse 75; Resp 18; Pulse Ox 100% ; Pain 8/10; dc2 04/29 01:15 BP 128 / 87; Pulse 74; Resp 20; Temp 98.2; Pulse Ox 100% ; Pain 7/10; dc2 04/28 20:21 Body Mass Index 68.39 (186.43 kg, 165.10 cm) MDM: 01:16 Differential diagnosis: ectopic , menometrorrhagia, menorrhea, urinary tract [facility] infection, Pulmonary embolus, pneumonia, bronchitis, anemia, headache, anxiety. Data reviewed: vital signs, nurses notes, old medical records, lab test result(s), cardiac enzymes, CBC, electrolytes, urinalysis, UPT: negative EKG, radiologic studies, CT scan, plain films. Data interpreted: Pulse oximetry: on room air is 100 %. Interpretation: normal. Counseling: I had a detailed discussion with the patient and/or guardian regarding: the historical points, exam findings, and any diagnostic results supporting the discharge/admit diagnosis, lab results, radiology results, the need for outpatient follow up, an OB/Gyne specialist, to return to the emergency department if symptoms worsen or persist or if there are any questions or concerns that arise at home. Response to treatment: the patient's symptoms have resolved after treatment, the patient's blood pressure is in an acceptable range, mental status has returned to baseline, the patient no longer shows bradycardia, the patient is not short of breath, the patient is not tachycardic, the patient's pain is gone, the patient's temperature has normalized. ED course: Well-appearing, no acute distress, vital signs stable, no focal neurological deficits. No headache, chest pain, shortness of breath, nausea, vomiting, or other complaints. Patient admits to recent anxiety due to of 2 family members and states that she developed the headache at time when she was pulled over by police due to an issue with her car.. 01:23 Patient medically screened. [facility] 04/28 20:59 Order name: Basic Metabolic Panel; Complete Time: 22:38 [facility] 04/28 20:59 Order name: CBC with Diff; Complete Time: 00: [facility] 04/28 21:14 Order name: Protime (+inr); Complete Time: 00:28 [facility] 04/28 21:14 Order name: Ptt, Activated; Complete Time: 00:28 [facility] 04/28 21:15 Order name: Urine Microscopic Only; Complete Time: 00:28 [facility] 04/28 21:16 Order name: Type And Screen; Complete Time: 00:28 [facility] 04/28 21:57 Order name: Troponin (Emerg Dept Use Only); Complete Time: 22:38 [facility] 04/28 21:57 Order name: NT PRO-BNP; Complete Time: 22:38 [facility] 04/28 22:01 Order name: Urine Culture [facility] 04/28 22:08 Order name: CBC Smear Scan; Complete Time: 00:28 [facility] 04/28 20:59 Order name: IV Saline Lock; Complete Time: 22:27 [facility] 04/28 20:59 Order name: Labs collected and sent; Complete Time: 22:23 [facility] 04/28 20:59 Order name: NPO; Complete Time: 22:23 [facility] 04/28 20:59 Order name: Urine Test (obtain specimen); Complete Time: 23:04 [facility] 04/28 21:14 Order name: Chest Single View XRAY; Complete Time: 22:13 [facility] 04/28 21:14 Order name: EKG; Complete Time: 21:15 [facility] 04/28 21:14 Order name: EKG - Nurse/Tech; Complete Time: 21:51 [facility] 04/28 22:59 Order name: CT Chest For PE Angio [facility] 04/28 22:59 Order name: CT Head Brain wo Cont [facility] 04/29 00:12 Order name: Test, Urine; Complete Time: 00:28 EDMS 04/29 00:31 Order name: SARS-COV-2 RT PCR; Complete Time: 01:06 EDMS Administered Medications: 04/28 22:55 Drug: Tylenol 1000 mg {Note: headache to back of head, prs 10/10.} Route: PO; dc2 23:30 Follow up: Pain 03/10 dc2 Disposition Summary: 04/29/21 01:23 Discharge Ordered Location: Home [facility] Problem: an ongoing problem [facility] Symptoms: have improved [facility] Condition: Stable [facility] Diagnosis - Anemia, unspecified 7 - Vaginal Bleeding 7 - Dyspnea, unspecified 7 - Headache [facility] Followup: [facility] - With: Private Physician - When: 1 - 2 days - Reason: Worsening of condition, Recheck today's complaints, Continuance of care, Re-evaluation by your physician Followup: [facility] - With: Carola Figueroa MD - When: 1 - 2 days - Reason: Worsening of condition, Recheck today's complaints, Continuance of care, Re-evaluation by your physician Discharge Instructions: - Discharge Summary Sheet [facility] - Anemia [facility] - General Headache Without Cause 7 - Shortness of Breath, Adult, [id number] 7 - Metrorrhagia, [id number] [facility] Forms: - Medication Reconciliation Form [facility] - Thank You Letter [facility] - Antibiotic Education 7 - Prescription Opioid Use [facility] Signatures: Dispatcher [employer] ANDREACA Sam Lau MD MD 7 Allan Casas RN Melany Brown RN RN dc2 Corrections: (The following items were deleted from the chart) 21:35 20:25 PMHx: None; naun dc2 21:55 20:59 Urine Dipstick-Ancillary ordered. [facility] sj1 21:57 21:17 PROBNP+C.LAB.BRZ ordered. [facility] EDMS 21:57 21:17 TROPONIN (EMERG DEPT USE ONLY)+C.LAB.CHANTELL ordered. EDMS EDMS 22:10 20:59 ABO/RH TYPING+BB.LAB.CHANTELL ordered. EDMS EDMS 23:20 23:03 CORONAVIRUS+MR.LAB.CHANTELL ordered. EDMS EDMS 23:21 23:03 CORONAVIRUS+MR.LAB.CHANTELL ordered. EDMS EDMS
[2021-04-29 01:46] VITALS: O2SAT 100
[2021-04-29 01:48] VITALS: TEMP 98
[2021-04-29 01:51] VITALS: BP 132/79
--- NOTE | 2021-04-29 12:03 | RAD REPORT ---
EXAM DESCRIPTION: CT - Head Brain Wo Cont - 04/29/2021 6:29 am CLINICAL HISTORY: 25 years Female HEADACHE COMPARISON: None TECHNIQUE: Contiguous axial images of the brain were obtained without the administration of intraven ous contrast.This exam was performed according to our departmental dose-optimization program which in cludes use of Automated Exposure Control, adjustment of the mA and/or kV according to patient size an d/or use of iterative reconstruction technique. DLP: 878 mGy*cm FINDINGS: Brain: No acute intracranial hemorrhage. No extra-axial collection. No mass effect or elly iation. Ventricles: Within normal limits in size. Globes and orbits: No acute abnormality. Bones: No acute osseous finding Paranasal sinuses: Paranasal sinuses are clear. Mastoid air cells: Well pneumatized. Soft tissues: Within normal limits IMPRESSION: No acute intracranial abnormality. Electronically signed by: aJm Miller DO 04/29/2021 12:54 AM CDT Due to temporary technical issues with the PACS/Fluency reporting system, reports are being signed by the in house radiologists without review as a courtesy to insure prompt reporting. The interpreting radiologist is fully responsible for the content of the report.
--- NOTE | 2021-04-29 12:14 | RAD REPORT ---
EXAM DESCRIPTION: CT - Chest For Pe Angio - 04/29/2021 6:30 am CLINICAL HISTORY: The patient is 25 years old and is Female; SOB TECHNIQUE: Axial computed tomographic angiography images of the chest with intravenous contrast. T his CT exam was performed using one or more of the following dose reduction techniques: automated e xposure control, adjustment of the mA and/or kV according to patient size, and/or use of iterative re construction technique. MIP reconstructed images were created and reviewed. Oblique reformatted images were created and reviewed. DLP: 1074 mGy*cm COMPARISON: Chest radiograph of the same day. FINDINGS: LIMITATIONS: Limited evaluation due to poor bolus timing and patient body habitus. PULMONARY ARTERIES: No central pulmonary embolus. AORTA: No acute findings. No thoracic aortic aneurysm. LUNGS: No mass. No consolidation. PLEURAL SPACE: No significant effusion. No pneumothorax. HEART: No cardiomegaly. No significant pericardial effusion. No evidence of RV dysfunction. BONES/JOINTS: Straightening of thoracic kyphosis. No acute fracture. No dislocation. SOFT TISSUES: Unremarkable. LYMPH NODES: Unremarkable. No enlarged lymph nodes. IMPRESSION: 1. Limited evaluation due to poor bolus timing and patient body habitus. No central pu lmonary emboli. 2. No acute intrathoracic abnormality. Electronically signed by: Jam Miller DO 04/29/2021 12:53 AM CDT Due to temporary technical issues with the PACS/Fluency reporting system, reports are being signed by the in house radiologists without review as a courtesy to insure prompt reporting. The interpreting radiologist is fully responsible for the content of the report.
--- NOTE | 2021-04-29 16:58 | EKG ---
Test Date: 2021-04-28 Test Time: 21:49:06 Nutrition Services Worker: MEASUREMENT RESULTS: Intervals: Rate: 86 GA: 166 QRSD: 80 QT: 388 QTc: 464 [place]: P: 52 GA: 166 QRS: 51 T: 37 INTERPRETIVE STATEMENTS: Normal sinus rhythm Normal ECG Compared to ECG 10/27/2020 10:52:35 No significant changes Electronically Signed On 04-29-21 16:57:50 CDT by Anson Whitlock
== END 2021-04-29 01:39 | disposition home or self-care (01) ==
LOC: ER 20:06
DX: D64.9 Anemia, unspecified (principal); R51.9 Headache, unspecified; R06.00 Dyspnea, unspecified; Z20.822 Contact with and (suspected) exposure to COVID-19
CPT/HCPCS: 93005; 87088; 85025; 87086; 80048; 36415; 86900; 86850; 81025; 85610; 86901; 85730; 81015; 84484; 83880; 70450; 71275; 71045; 99285; U0003; Q9967

== ENCOUNTER 2021-07-10 12:43 | Emergency (ER) | payer OTHER ==
--- OUTSIDE RECORDS SUMMARY | 2021-07-10 12:47 | XMS REPORT | Continuity of Care Document ---
:1995 Author Organization [facility] t Address [address] [place] [address] Care Team Providers Name Role Phone Anayeli Anna Primary Care Physician Erika LANGLEY Attending Clinician Shaq Garrison MD Attending Clinician Anayeli Anna Attending Clinician Payers Payer Name Policy Type Policy Number Effective Date Expiration Date S ource Problems Condition Condition Condition Status Onset Resolution Last Treating Co mments Source Name Details Category Date Date Treatment Clinician Date Abnormal Abnormal Disease Active Overview: Un debbi uterine uterine 08-04 Formattin ity o f bleeding bleeding 00:00: g of this Michael as 00 note Medical might be Branch different from the original. Added automatic ally from request for surgery [id number] Anemia, Anemia, Disease Active 2019-08 Univers unspecifie unspecifie 2- it y of d d 00:00: [place] [facility] Other Other Disease Active 2019-08 Univers general general 1- it[place] of counseling [place] and advice and advice 00 Me dical for for Branch contracept contracept dinesh dinesh management management Morbid Morbid Disease Active 2019-08 Univers obesity obesity 1- ity of 00:00: [place] [facility] Other Other Disease Active 2019-08 Univers depression depression 1 it y of 00:00: [place] [facility] Allergies, Adverse Reactions, Alerts This patient has no known allergies or adverse reactions. Social History Social Habit Start Date Stop Date Quantity Comments Source Exposure to Not sure University SARS-CoV-2 [facility] (event) Branch Alcohol intake 2021-05-05 2021-05-05 Ex-drinker University 00:00:00 00:00:00 (finding) [facility] Tobacco use and 2020-06-03 2020-06-03 Never used Universit y of exposure 00:00:00 00:00:00 [facility] Sex Ass[birth year] At [birth year] Universit y of 00:00:00 00:00:00 [facility] Smoking Status Start Date Stop Date Source Never smoker [facility] Medications Ordered Filled Start Stop Current Ordering Indication Dosage Frequency Signature Comments Components Source Medication Medication Date Date Medication? Clinician (SIG) Name Name medroxyPROG 2020-08- No [id number] 150mg Univers ESTERone 09-06 100 ity of (DEPO-PROVE 17:45: 16:45 [place] RA) syringe 00 :00 Medical 150 mg Branch medroxyPROG 2020-08- No [id number] 150mg 150 mg, Univers ESTERone 09-06 100 Intramuscu ity of (DEPO-PROVE 17:45: 16:45 lar, ONCE, [place] RA) syringe 00 :00 1 dose, On Me dical 150 mg [facility] 07/06/21 at 1145, Routine levothyroxi 2020-08 Yes 25ug Take 25 Uni vers ne 0-05 mcg by ity of (SYNTHROID) 08:43: mouth [place] 25 mcg 30 every Medical tablet morning. Branch lisinopriL Yes Univers 10 mg 9-30 ity of tablet 00:00: [place] 00 [facility] medroxyPROG Yes 150mg Unive rs ESTERone 2-10 ity of (DEPO-PROVE 20:28: [place] RA) 49 Medical injection [place] 150 mg PARoxetine Yes 10mg Take 10 mg U nivers (PAXIL) 10 2-10 by mouth ity o f mg tablet 07:37: daily. [place] 39 [facility] mv,Ca,min-i 2019-08 Yes [id number] 1{tbl} Take 1 Univers percy-FA-guar 2-22 tablet by ity of kendrick-caff 00:00: mouth [place] (ONE-A-DAY 00 daily. [facility] [place] ACTIVE) 18 mg iron- 400 mcg-180 mg Tab Vital Signs Vital Name Observation Time Observation Value Comments Source Systolic blood 2021-07-06 15:58:00 102 mm[Hg] Univer sity of pressure [facility] Diastolic blood 2021-07-06 15:58:00 69 mm[Hg] Unive rsity [facility] Heart rate 2021-07-06 15:58:00 82 /min [facility] Body temperature 2021-07-06 15:58:00 36.83 [facility] Res[facility] rate 2021-07-06 15:58:00 18 /min [facility] Body height 2021-07-06 15:58:00 165.1 cm [facility] Body weight 2021-07-06 15:58:00 190.511 kg [facility] BMI 2021-07-06 15:58:00 69.89 kg/m2 [facility] Procedures This patient has no known procedures. Encounters Start End Encounter Admission Attending Care Care Encounter Source Date/Time Date/Time Type Type Clinicians Facility Department ID 2021-07-06 2021-07-06 Office Noris James [facility] [id number] [facility] 09:21:56 10:48:33 Visit Michelle Garrison [id number] [facility] [id number] Alexander schwartz PROFESSIO [id number] [address] 2020-06-04 2020-06-04 Telephone Zack [facility] [id number] 00:00:00 00:00:00 Kelli Guadalupe PROFESSOR [employer] [id number] [facility] [id number] MATERNAL [id number] & CHILD [address] [place] [address] Results This patient has no known results.
[2021-07-10] MEDS ORDERED: MAGNES/ALUMIN/SIMET 30ML UCUP ONE (16:24)
[2021-07-10] MEDS ORDERED: FAMOTIDINE 20 MG/2 ML VIAL IV ONE (16:24)
[2021-07-10] MEDS ORDERED: NA CHLORIDE 0.9% 500 ML ONE (16:24)
[2021-07-10] MEDS ORDERED: LIDOCAINE VISCOUS 2% SOLN 15 ML UDC ONE (16:24)
[2021-07-10] MEDS ORDERED: ONDANSETRON 4 MG/2 ML VIAL ONE ×2 (16:24→23:14)
[2021-07-10 16:35] LABS: Absolute Lymphocytes (CBC) 2.1 K/uL (0.7-4.9); Basophils % 0.8 % (0-1.3); Hematocrit 29.5 % (36.0-45.0); Lymphocytes % 16.7 % (15.3-44.8); MPV 7.3 fL (7.6-11.3); RBC Red Blood Cell Count 4.51 M/uL (3.86-4.86)
[2021-07-10 16:36] LABS: Protime INR 1.21
--- NOTE | 2021-07-10 16:42 | RAD REPORT ---
EXAM DESCRIPTION: RAD - Chest Single View - 07/10/2021 4:35 pm CLINICAL HISTORY: CHEST PAIN COMPARISON: Chest Single View dated 04/28/2021; Chest Single View dated 10/27/2020 FINDINGS: Lines: None. Lungs: Increased prominence of the pulmonary interstitium. Pleural: No significant pleural effusions or pneumothorax. Cardiac: Cardiomegaly, increased from prior. Bones: No acute fractures. Other: IMPRESSION: Findings consistent with pulmonary edema.
[2021-07-10 16:48] LABS: ALT/SGPT 17 U/L (12-78); AST/SGOT 12 U/L (15-37); Albumin 3.2 g/dL (3.4-5.0); Alkaline Phosphatase 77 U/L (45-117); BUN Blood Urea Nitrogen 11 mg/dL (7-18); Bicarbonate 25 mmol/L (21-32); Bilirubin Direct < 0.1 mg/dL (0-0.2); Bilirubin Total 0.2 mg/dL (0.2-1.0); Glucose Level 125 mg/dL (74-106); Lipase 66 U/L (73-393); Magnesium 2.2 mg/dL (1.8-2.4); NT PRO-BNP 14 pg/mL (<125); Potassium 4.1 mmol/L (3.5-5.1); Protein, Total 8.7 g/dL (6.4-8.2); Sodium Level 139 mmol/L (136-145); Troponin (Emerg Dept Use Only) < 0.02 ng/mL (0.0-0.045)
[2021-07-10 17:01] LABS: Blood Morphology Comment NOTED (NOT SEEN); Hypochromasia 2+; White Blood Cell Scan OK (OK)
[2021-07-10 17:18] LABS: Platelet Estimate INCR
[2021-07-10 17:40] LABS: Urine Blood 3+ (Negative); Urine Glucose Negative (Negative); Urine Protein 1+ (Negative); Urine Specific Gravity 1.025 (1.005-1.030)
[2021-07-10 17:54] LABS: Urine Specific Gravity/Preg 1.025 (1.005-1.030)
--- NOTE | 2021-07-10 18:59 | RAD REPORT ---
EXAM DESCRIPTION: US - Transvaginal Study Probe - 07/10/2021 6:44 pm CLINICAL HISTORY: VAGINAL BLEEDING Pelvic pain. COMPARISON: No comparisons FINDINGS: The uterus is normal in size, shape and echotexture. The uterus measures 7.5 cm The endometrial stripe measures 5 mm, within normal limits. There is some fluid within the endometria l canal and cervical canal. Both ovaries are normal in size, shape and echotexture. The right ovary measures 1.4 x 0.8 x 1.3 cm with volume of 8 mL.. The left ovary measures 1.6 cm x 1.6 cm x 1.6 cm with volume of 2.2 mL No ovar isauro or parovarian lesions. No adnexal masses. Normal Doppler blood flow was demonstrated to both ovaries. No significant pelvic ascites. IMPRESSION: Bilateral ovarian blood flow. Small volume of fluid within the endometrial canal and cer vical canal likely represents blood products. No other significant abnormality is identified.
--- NOTE | 2021-07-10 23:57 | EDPHYS ---
Physician Documentation [facility] Name: Andreina Gomez Age: 25 yrs Sex: Female : 1995 Arrival Date: 07/10/2021 Time: 12:44 Bed 2 Private MD: Gt Oliveros ED Physician Irving Moore HPI: 07/10 15:55 This 25 yrs old Female presents to ER via Wheelchair with complaints of cp Vaginal Bleeding, Chest Pain. 15:55 The patient or guardian reports chest pain that is located primarily in the anterior cp chest wall. 15:55 Onset: The symptoms/episode began/occurred today. Severity of symptoms: in the emergency department the symptoms are unchanged, despite home interventions. The patient's method of control includes Depo shot. Associated signs and symptoms: Pertinent positives: vaginal bleeding, Pertinent negatives: abdominal pain, cough, diaphoresis, dizziness, lower extremity pain, lower extremity swelling, shortness of breath, syncope. The chest pain is described as sharp. 15:55 Patient reports vaginal bleeding since 06/27/2021 and having f/u with [employer] on cp 07/06/2021. [employer]: 12:58 LMP 06/27/2021 vg1 Historical: - Allergies: 12:58 No Known Allergies; vg1 - Home Meds: 12:58 levothyroxine 75 mcg tab once daily [Active]; metformin 500 mg Oral Tb24 1 tab once vg1 daily [Active]; - PMHx: 12:58 Anxiety; Diabetes - NIDDM; Hypothyroidism; Sleep Apnea; vg1 - Immunization history:: Client reports having NOT received the Covid vaccine. - Social history:: Smoking status: Patient denies any tobacco usage or history of. ROS: 16:00 Constitutional: Negative for body aches, chills, fever, poor PO intake. cp 16:00 Eyes: Negative for injury, pain, redness, and discharge. cp 16:00 ENT: Negative for ear pain, sore throat, difficulty swallowing, difficulty handling secretions. 16:00 Cardiovascular: Positive for chest pain, Negative for edema, palpitations. 16:00 Respiratory: Negative for cough, shortness of breath, wheezing. 16:00 Abdomen/GI: Negative for abdominal pain, nausea, vomiting, and diarrhea, black/tarry stool, rectal bleeding. 16:00 : Positive for vaginal bleeding, Negative for urinary symptoms. 16:00 Neuro: Negative for altered mental status, dizziness, headache, loss of consciousness, syncope, weakness. 16:00 All other systems are negative. Exam: 16:00 Constitutional: The patient appears in no acute distress, alert, awake, cp non-diaphoretic, non-toxic, well developed, well nourished, obese. 16:00 Head/Face: Normocephalic, atraumatic. cp 16:00 Eyes: Periorbital structures: appear normal, Conjunctiva: normal, no exudate, no cp injection, Sclera: no appreciated abnormality, Lids and lashes: appear normal, bilaterally. 16:00 ENT: External ear(s): are unremarkable, Nose: is normal, Mouth: Lips: moist, Oral mucosa: moist, Posterior pharynx: Airway: no evidence of obstruction, patent. 16:00 Neck: ROM/movement: is normal, is supple, without pain, no range of motions limitations.cp 16:00 Chest/axilla: Inspection: normal. 16:00 Cardiovascular: Rate: normal, Rhythm: regular. 16:00 Respiratory: the patient does not display signs of respiratory distress, Respirations: normal, no use of accessory muscles, no retractions, labored breathing, is not present, Breath sounds: are clear throughout, no decreased breath sounds, no stridor, no wheezing. 16:00 Abdomen/GI: Inspection: obese Palpation: abdomen is soft and non-tender, in all quadrants. 16:00 Back: pain, is absent, ROM is normal. 16:00 Neuro: Orientation: to person, place \T\ time. Mentation: is normal, Motor: moves all fours, strength is normal, Sensation: is normal. 16:04 ECG was reviewed by the Attending Physician. cp Vital Signs: 12:56 BP 147 / 68; Pulse 88; Resp 22; Temp 98.2; Pulse Ox 100% ; Weight 190.51 kg; Height 5 vg1 ft. 5 in. (165.10 cm); Pain 10/10; 15:55 BP 144 / 85; Pulse 88; Resp 18; Pulse Ox 100% on R/A; mb7 19:07 BP 135 / 59; Pulse 85; Resp 18; Pulse Ox 100% ; ll1 22:36 BP 103 / 50; Pulse 81; Resp 20 S; Pulse Ox 100% on R/A; as6 12:56 Body Mass Index 69.89 (190.51 kg, 165.10 cm) vg1 Procedures: 22:05 Peripheral line: by aseptic technique a peripheral line was placed in the left la1 antecubital vein, 20G midline with ultrasound guidance. Confirmed with US evaluation visualizing catheter in lumen of vein as well as blood return and easily flushes. MDM: 15:52 Patient medically screened. cp 23:55 Data reviewed: vital signs, nurses notes, lab test result(s), EKG, radiologic studies, cp CT scan, plain films. 23:55 Test interpretation: by ED physician or midlevel provider: ECG, plain radiologic cp studies. Counseling: I had a detailed discussion with the patient and/or guardian regarding: the historical points, exam findings, and any diagnostic results supporting the discharge/admit diagnosis, lab results, radiology results, the need for outpatient follow up, for definitive care, a family practitioner, an OB/Gyne specialist, to return to the emergency department if symptoms worsen or persist or if there are any questions or concerns that arise at home. Response to treatment: the patient's symptoms have markedly improved after treatment, and as a result, I will discharge patient. Special discussion: Based on the patient's history, exam, and Dx evaluation, there is no indication for emergent intervention or inpatient Tx. It is understood by the patient/guardian that if the Sx's persist or worsen they need to return immediately for re-evaluation. 07/10 15:53 Order name: Basic Metabolic Panel; Complete Time: 16:56 cp 07/10 16:56 Interpretation: Normal except: CL 109; GLUC 125. cp 07/10 15:53 Order name: CBC with Diff; Complete Time: 17:24 cp 07/10 16:56 Interpretation: Normal except: WBC 12.40; HGB 8.7; HCT 29.5; MCV 65.3; MCH 19.4; MCHC cp 29.7; PLT 519; RDW 19.4; MPV 7.3; LUIS ALFREDO% 76.5; NEUT A 9.4. 07/10 15:53 Order name: LFT's; Complete Time: 16:56 cp 07/10 17:14 Interpretation: Normal except: AST 12; TP 8.7; ALB 3.2; GLOB 5.5; A/G 0.6. 07/10 15:53 Order name: Magnesium; Complete Time: 16:56 10 15:53 Order name: NT PRO-BNP; Complete Time: 16:56 10 15:53 Order name: PT-INR; Complete Time: 16:56 10 17:15 Interpretation: Reviewed. 07/10 15:53 Order name: Troponin (emerg Dept Use Only); Complete Time: 16:56 10 15:53 Order name: XRAY Chest (1 view); Complete Time: 16:56 07/10 15:53 Order name: Lipase; Complete Time: 16:56 10 16:57 Order name: CT Chest For PE Angio 07/10 17:01 Order name: CBC Smear Scan; Complete Time: 17:24 EDMS 07/10 17:14 Interpretation: Reviewed. 07/10 17:39 Order name: Urine Dipstick-Ancillary; Complete Time: 20:09 EDMS 10 21:35 Interpretation: Normal except: UBLD 3+; UPROT 1+. 07/10 17:40 Order name: Urine --Ancillary (enter results) eb 07/10 17:40 Order name: Urine --Ancillary; Complete Time: 20:09 EDWY 10 15:53 Order name: EKG; Complete Time: 15:54 10 15:53 Order name: Cardiac monitoring; Complete Time: 15:54 07/10 15:53 Order name: EKG - Nurse/Tech; Complete Time: 15:54 10 15:53 Order name: IV Saline Lock; Complete Time: 15:54 10 15:53 Order name: Labs collected and sent; Complete Time: 15:54 10 15:53 Order name: O2 Per Protocol; Complete Time: 15:54 10 15:53 Order name: O2 Sat Monitoring; Complete Time: 15:54 10 15:53 Order name: Urine Dipstick-Ancillary (obtain specimen); Complete Time: 17:26 10 15:53 Order name: Urine Test (obtain specimen); Complete Time: 17:26 10 17:24 Order name: US Transvaginal Study (Probe); Complete Time: 20:09 cp EC:04 Rate is 82 beats/min. Rhythm is regular. NH interval is normal. QRS interval is normal. cp QT interval is normal. T waves are Inverted in lead aVR. T waves are Flattened in lead aVL. Interpreted by me. Reviewed by me. Administered Medications: 16:40 Drug: NS 0.9% 500 ml Route: IV; Rate: 125 ml/hr; Site: right antecubital; ll1 07/11 00:23 Follow up: Response: No adverse reaction; IV Status: Completed infusion; IV Intake: as6 1000ml 07/10 16:41 Drug: Pepcid (famotidine) 20 mg Route: IVP; Site: right antecubital; ll1 07/11 00:23 Follow up: Response: No adverse reaction as6 07/10 16:41 Drug: Zofran (Ondansetron) 4 mg Route: IVP; Site: right antecubital; ll1 07/11 00:23 Follow up: Response: No adverse reaction as6 07/10 16:42 Drug: GI Cocktail without - (Maalox Suspension 30 ml, Lidocaine Liquid 2 % 15 ll1 ml) Route: PO; 07/11 00:23 Follow up: Response: No adverse reaction as6 07/10 23:18 Drug: Zofran (Ondansetron) 4 mg Route: IVP; Site: left antecubital; as6 07/11 00:23 Follow up: Response: No adverse reaction as6 Disposition Summary: 07/10/21 23:56 Discharge Ordered Location: Home cp Problem: new cp Symptoms: have improved cp Condition: Stable cp Diagnosis - Chest pain, unspecified cp - Anemia in other chronic diseases classified elsewhere cp - Abnormal uterine and vaginal bleeding, unspecified cp Followup: cp - With: Gt Oliveros MD - When: 2 - 3 days - Reason: Recheck today's complaints Discharge Instructions: - Discharge Summary Sheet cp - Abnormal Uterine Bleeding cp - Anemia cp - Nonspecific Chest Pain, Adult cp - Aspirin and Your Heart cp Forms: - Medication Reconciliation Form cp - Thank You Letter cp - Antibiotic Education cp - Prescription Opioid Use cp Prescriptions: - Ibuprofen 800 mg Oral Tablet - take 1 tablet by ORAL route every 8 hours As needed take with food; 30 tablet; cp Refills: 0, Product Selection Permitted - Pepcid 20 mg Oral Tablet - take 1 tablet by ORAL route every 12 hours for 10 days; 20 tablet; Refills: 0, cp Product Selection Permitted Addendum: 07/13/2021 11:21 Co-signature as Attending Physician, Irving Moore MD I agree with the assessment and k dr plan of care. Signatures: Dispatcher [employer] EDWY Irving Moore MD MD kdr Attema, Lee, PERSONAL INJURY SPECIALIST-C PERSONAL INJURY SPECIALIST-Cla1 Craig Carter PA PA cp Garcia, Victoria, RN RN vg1 Ceferino Wilson RN RN ll1 Arthur Martinez RN RN as6 Corrections: (The following items were deleted from the chart) 07/12 00:11 07/10 15:55 Patient reports vaginal bleeding since 06/27/2021 and having f/u with cp [employer] . cp
--- NOTE | 2021-07-10 23:57 | ER ---
Nurse's Notes [facility] Name: Andreina Gomez Age: 25 yrs Sex: Female : 1995 Arrival Date: 07/10/2021 Time: 12:44 Bed 2 Private MD: Gt Oliveros Diagnosis: Chest pain, unspecified;Anemia in other chronic diseases classified elsewhere;Abnormal uterine and vaginal bleeding, unspecified Presentation: 07/10 12:56 Chief complaint: Patient states: chest pain began today at 1200, denies radiation. vg1 States when burps feels a little relief but comes right back. States back pain as well.. Denies nausea/vomiting. Pt states when presses down on mid chest it hurts more. States saw doctor on 07/06 for vaginal bleeding that began on 06/27 and was told 'it could be thyroid'. Coronavirus screen: Vaccine status: Patient reports being unvaccinated. Client denies travel out of the [place] in the last 14 days. Ebola Screen: Patient negative for fever greater than or equal to 101.5 degrees Fahrenheit, and additional compatible Ebola Virus Disease symptoms. Initial Sepsis Screen: Does the patient meet any 2 criteria? No. Patient's initial sepsis screen is negative. Does the patient have a suspected source of infection? No. Patient's initial sepsis screen is negative. Risk Assessment: Do you want to hurt yourself or someone else? Patient reports no desire to harm self or others. Onset of symptoms was July 10, 2021. 12:56 Method Of Arrival: Wheelchair vg1 12:56 Acuity: ARVIND 3 vg1 Triage Assessment: 12:58 General: Appears in no apparent distress. uncomfortable, Behavior is cooperative. Pain: vg1 Complains of pain in mid-sternal area and back Pain currently is 10 out of 10 on a pain scale. : Reports vaginal bleeding that is bright red, with clots, light flow. 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 - Social history:: Smoking status: Patient denies any tobacco usage or history of. Screenin:22 Abuse screen: Denies threats or abuse. Denies injuries from another. Nutritional ss screening: No deficits noted. Tuberculosis screening: Never had TB. Fall Risk None identified. Assessment: 15:50 General: Appears in no apparent distress. Behavior is calm, cooperative, appropriate ll1 for age. Cardiovascular: Reports chest pain. : will assess during pelvic exam Reports vaginal bleeding that is. 16:45 Reassessment: No changes from previously documented assessment. Patient and/or family ll1 updated on plan of care and expected duration. Pain level reassessed. Patient is alert, oriented x 3, equal unlabored respirations, skin warm/dry/pink. 19:45 Reassessment: Patient is alert, oriented x 3, equal unlabored respirations, skin lp1 warm/dry/pink. Patient reports pain to IV site to R AC; flushing slowly, blood return noted. 22:38 Pain: Denies pain. GI: Reports nausea. as6 Vital Signs: 12:56 BP 147 / 68; Pulse 88; Resp 22; Temp 98.2; Pulse Ox 100% ; Weight 190.51 kg; Height 5 vg1 ft. 5 in. (165.10 cm); Pain 10/10; 15:55 BP 144 / 85; Pulse 88; Resp 18; Pulse Ox 100% on R/A; mb7 19:07 BP 135 / 59; Pulse 85; Resp 18; Pulse Ox 100% ; ll1 22:36 BP 103 / 50; Pulse 81; Resp 20 S; Pulse Ox 100% on R/A; as6 12:56 Body Mass Index 69.89 (190.51 kg, 165.10 cm) vg1 ED Course: 12:44 Patient arrived in ED. am2 12:44 Gt Oliveros MD is Private Physician. am2 12:58 Triage completed. vg1 12:58 Arm band placed on. EKG completed in triage. Results shown to MD. vg1 15:48 Ceferino Wilson, PARVEEN is Primary Nurse. ll1 15:49 Craig Carter PA is PHCP. cp 15:49 Irving Moore MD is Attending Physician. cp 15:49 Patient placed in an exam room, on a stretcher. ll1 16:15 Inserted saline lock: 20 gauge in right antecubital area, using aseptic technique. ss ,using aseptic technique. Insertion by ANDREA De La Vega Blood collected. 16:35 XRAY Chest (1 view) In Process Unspecified. EDMS 16:58 Patient has correct armband on for positive identification. Bed in low position. Call ll1 light in reach. Side rails up X 1. Pulse ox on. NIBP on. 18:44 US Transvaginal Study (Probe) In Process Unspecified. EDMS 22:24 CT Chest For PE Angio In Process Unspecified. EDMS 23:55 Gt Oliveros MD is Referral Physician. cp 07/11 00:22 No provider procedures requiring assistance completed. IV discontinued, intact, as6 bleeding controlled, No redness/swelling at site. Pressure dressing applied. Administered Medications: 07/10 16:40 Drug: NS 0.9% 500 ml Route: IV; Rate: 125 ml/hr; Site: right antecubital; ll1 07/11 00:23 Follow up: Response: No adverse reaction; IV Status: Completed infusion; IV Intake: as6 1000ml 07/10 16:41 Drug: Pepcid (famotidine) 20 mg Route: IVP; Site: right antecubital; ll1 07/11 00:23 Follow up: Response: No adverse reaction as6 07/10 16:41 Drug: Zofran (Ondansetron) 4 mg Route: IVP; Site: right antecubital; ll1 07/11 00:23 Follow up: Response: No adverse reaction as6 07/10 16:42 Drug: GI Cocktail without - (Maalox Suspension 30 ml, Lidocaine Liquid 2 % 15 ll1 ml) Route: PO; 07/11 00:23 Follow up: Response: No adverse reaction as6 07/10 23:18 Drug: Zofran (Ondansetron) 4 mg Route: IVP; Site: left antecubital; as6 07/11 00:23 Follow up: Response: No adverse reaction as6 Intake: 00:23 IV: 1000ml; Total: 1000ml. as6 Outcome: 07/10 23:56 Discharge ordered by . cp 07/11 00:22 Discharged to home ambulatory. as6 Condition: stable Discharge instructions given to patient, Instructed on discharge instructions, follow up and referral plans. medication usage, Demonstrated understanding of instructions, follow-up care, medications, Prescriptions given X 2. 00:24 Patient left the ED. as6 Signatures: Dispatcher [employer] EDMS Clary Childs RN RN ss Veronica Cordon RN RN lp1 Craig Carter PA PA cp Moreno, Amanda am2 Garcia, Victoria, RN RN vg1 Ceferino Wilson RN RN ll1 Arthur Martinez RN RN as6 Ashlie Michelle 7
[2021-07-11 00:31] VITALS: TEMP 98.2; O2SAT 100
[2021-07-11 00:34] VITALS: BP 103/50
--- NOTE | 2021-07-11 17:40 | RAD REPORT ---
EXAM DESCRIPTION: CT - Chest For Pe Angio - 07/10/2021 10:24 pm CLINICAL HISTORY: 25 years, Female, CHEST PAIN COMPARISON: 04/29/2021 TECHNIQUE: Multiple transaxial tomograms of the chest were obtained from the lung apices through the lung bases utilizing 2 mm slice thickness at 2 mm interval reconstruction after the administration o f large bolus of IV contrast for complete opacification of the pulmonary arteries. Subsequent 3-D maximum intensity projection images were generated in the coronal and sagittal plane f or review. This exam was performed according to our departmental dose-optimization protocol, which includes auto mated exposure control, adjustment of the mA and/or kV according to patient size and/or use of iterat dinesh reconstruction technique. FINDINGS: Study is somewhat comprised due to patient large body habitus and streak artifact. Grossly the lungs parenchyma demonstrate to be clear. No significant masses, nodules and/or consolida tions are identified. The trachea mainstem bronchus demonstrate to be normal. There is no significa nt pericardial or pleural effusions. The thoracic aorta demonstrate to be unremarkable. The heart is normal in size. No evidence for right ventricular strain. No significant coronary artery calcifications. There is no significant mediastinal and/or hilar lymphadenopathy. The axillary regions demonstrate to be clear. Pulmonary arteries demonstrate to be grossly normal, no gross intraluminal defect are seen that would suggest pulmonary embolus. The bone windows demonstrate no significant skeletal lesions. Visualized portions of the upper abdomen suggest perhaps fatty infiltration of the liver. Questionabl e cholelithiasis. IMPRESSION: Study is somewhat comprised due to patient large body habitus and streak artifact. No gross intraluminal defect are seen that would suggest pulmonary embolus. Questionable fatty infiltration of the liver. Questionable cholelithiasis. 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 The interpreting radiologist is fully responsible for the content of the report.
== END 2021-07-11 00:24 | disposition home or self-care (01) ==
LOC: ER 12:43
DX: R07.9 Chest pain, unspecified (principal); D63.8 Anemia in other chronic diseases classified elsewhere; N93.9 Abnormal uterine and vaginal bleeding, unspecified; E11.9 Type 2 diabetes mellitus without complications; E03.9 Hypothyroidism, unspecified
CPT/HCPCS: 93005; 85025; 80048; 36415; 83735; 81025; 85610; 80076; 81003; 84484; 83690; 83880; 71275; 71045; 76830; 99284; Q9967; J7040; J2405 ×2

== ENCOUNTER → 2021-08-04 | Day surgery (SDC) | payer OTHER ==
[~2021-08-04] MED LIST: SOD FERRIC GLUC COMPLX/SUCROSE 125 MG in NA CHLORIDE 0.9% 100 ML IV ONE
[2021-08-04 10:36] VITALS: BP 149/67; TEMP 98; O2SAT 100; BMI 82.6
== END ==
LOC: DS 07:25
PROVIDERS: ATTEND Internal Medicine
DX: D50.0 Iron deficiency anemia secondary to blood loss (chronic) (principal); N93.8 Other specified abnormal uterine and vaginal bleeding
CPT/HCPCS: 96365; J2916

== ENCOUNTER 2021-08-12 07:44 | Day surgery (SDC) | payer OTHER ==
[2021-08-12] MEDS ORDERED: SOD FERRIC GLUC COMPLX/SUCROSE 250 MG in NA CHLORIDE 0.9% 250 ML IV ONE (08:00)
[2021-08-12 12:34] VITALS: BP 127/71; TEMP 98.4; O2SAT 99; BMI 82.6
== END 2021-08-12 11:10 | disposition home or self-care (01) ==
LOC: DS 07:44
PROVIDERS: ATTEND Internal Medicine
DX: D50.0 Iron deficiency anemia secondary to blood loss (chronic) (principal); N93.8 Other specified abnormal uterine and vaginal bleeding
CPT/HCPCS: 96365; 96366; J2916; J7050